=== PATIENT | female | born 1945 | race Caucasian/White ===

== ENCOUNTER → 2016-04-24 | Outpatient (CLI) | payer MEDICARE, OTHER ==
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
== END | disposition home or self-care (01) ==
LOC: RADMRIMAIN 20:37
PROVIDERS: ATTEND Psychiatry & Neurology Neurology
DX: M48.06 Spinal stenosis, lumbar region (principal); M99.73 Connective tissue and disc stenosis of intervertebral foramina of lumbar region; M43.16 Spondylolisthesis, lumbar region; M51.26 Other intervertebral disc displacement, lumbar region; M51.36 Other intervertebral disc degeneration, lumbar region
CPT/HCPCS: 72148

== ENCOUNTER → 2016-05-20 | Outpatient (CLI) | payer MEDICARE, OTHER ==
--- NOTE | 2016-05-20 11:52 | MM ---
Reason for exam: history of breast cancer, conservation therapy. Last mammogram was performed 1 year ago. History: Patient is postmenopausal, has history of breast cancer at age 58, and has history of other cancer at age 56. Family history of breast cancer in sister at age 56. Benign right mammotome panel of the right breast, June 13, 2008. Lumpectomy of the left breast, August 2004. Radiation therapy of the left breast, May 2004. Malignant stereotactic core biopsy of the left breast, April 04, 2004. Took estrogen for 12 years. Took progesterone for 12 years. Took tamoxifen for 4 years 6 months. Physical Findings: Nurse did not find any significant physical abnormalities on exam. MG 3D Diag Mammo W/Cad JASON Bilateral CC and MLO view(s) were taken. Prior study comparison: May 19, 2015, bilateral MG 3d diag mammo w/cad JASON. May 18, 2014, bilateral MG diagnostic mammo w CAD JASON. June 30, 2013, CAD bilateral diagnostic mammogram. June 29, 2012, CAD bilateral diagnostic mammogram. Previous mammotome biopsy in the right breast. Extensive post surgical deformity to the left breast. No significant new findings when compared with previous films. These results were verbally communicated with the patient and result sheet given to the patient on 05/20/16. ASSESSMENT: Benign, BI-RAD 2 RECOMMENDATION: Follow-up diagnostic mammogram of both breasts in 1 year.
== END ==
LOC: RADMAMWWP 10:52
PROVIDERS: ATTEND Internal Medicine Hematology & Oncology
DX: Z85.3 Personal history of malignant neoplasm of breast (principal)
CPT/HCPCS: G0204; G0279

== ENCOUNTER → 2016-06-10 | Outpatient (CLI) | payer MEDICARE, OTHER ==
[2016-06-10 14:30] LABS: Non-African American GFR(MDRD) >60 (>60 ml/min/1.73 sqM)
== END ==
LOC: LABWHC1 13:47
PROVIDERS: ATTEND Psychiatry & Neurology Neurology
DX: Z01.812 Encounter for preprocedural laboratory examination (principal); M48.04 Spinal stenosis, thoracic region
CPT/HCPCS: 36415; 82565

== ENCOUNTER → 2016-06-11 | Outpatient (CLI) | payer MEDICARE, OTHER ==
--- NOTE | 2016-06-11 16:13 | MR ---
EXAMINATION TYPE: MR thoracic spine wo/w con DATE OF EXAM: 06/11/2016 2:20 PM COMPARISON: NONE HISTORY: spinal stenosis TECHNIQUE: Multiplanar multiecho imaging on a 3.0 Elena magnet is performed through the thoracic spin e. CONTRAST: Standard multiplanar, multisequence MRI departmental protocol utilizing 10 mL intravenous MultiHance gadolinium contrast. FINDINGS: Spinal cord maintains normal signal throughout its visualized course. T10-T11: Right right posterior lateral thecal sac compression from facet hypertrophy is present. This may have cord contact. Cord deformity is not identified. No spinal canal stenosis is evident. T7-T8: There is mild left paracentral disc bulging with mild anterior thecal sac compression. No cord contact is evident. No spinal canal stenosis or neural foraminal stenosis is present. Disc desiccation is present diffusely. Vertebral body heights are preserved. No abnormal enhancement is evident. IMPRESSION: 1. Facet hypertrophy T10-T11 with right posterior lateral thecal sac compression. 2. Left paracentral disc bulging T7-T8 with mild thecal sac compression.
== END | disposition home or self-care (01) ==
LOC: RADMRIMAIN 13:17
PROVIDERS: ATTEND Psychiatry & Neurology Neurology
DX: M51.24 Other intervertebral disc displacement, thoracic region (principal); G95.29 Other cord compression; M48.04 Spinal stenosis, thoracic region
CPT/HCPCS: 72157; A9577

== ENCOUNTER → 2016-11-21 | Outpatient (CLI) | payer MEDICARE, OTHER ==
--- NOTE | 2016-11-21 09:19 | MM ---
Reason for exam: clinical finding. Last mammogram was performed 6 months ago. History: Patient is postmenopausal, has history of breast cancer at age 58, and has history of other cancer at age 56. Family history of breast cancer in sister at age 56. Benign right mammotome panel of the right breast, June 13, 2008. Lumpectomy of the left breast, August 2004. Radiation therapy of the left breast, May 2004. Malignant stereotactic core biopsy of the left breast, April 04, 2004. Took estrogen for 12 years. Took progesterone for 12 years. Took tamoxifen for 4 years 6 months. Indicated problem(s): lump or thickening in the left breast. Physical Findings: Nurse did not find any significant physical abnormalities on exam. MG 3D Diag Mammo W/Cad LT CC and MLO view(s) were taken of the left breast. Prior study comparison: May 20, 2016, bilateral MG 3d diag mammo w/cad JASON. May 19, 2015, bilateral MG 3d diag mammo w/cad JASON. The breast tissue is heterogeneously dense. This may lower the sensitivity of mammography. No suspicious calcifications are seen. Persistent distortion of left breast secondary to lumpectomy and radiations therapy. No new masses. No significant new findings when compared with previous films. These results were verbally communicated with the patient and result sheet given to the patient on 11/21/16. ASSESSMENT: Benign, BI-RAD 2 RECOMMENDATION: Follow-up diagnostic mammogram of both breasts in 6 months. Back on schedule for May 2017. Manage patient on a clinical basis.
== END | disposition home or self-care (01) ==
LOC: RADMAMWWP 08:19
PROVIDERS: ATTEND Internal Medicine Geriatric Medicine
DX: N63 Unspecified lump in breast (principal)
CPT/HCPCS: G0206; G0279

== ENCOUNTER → 2017-05-21 | Outpatient (CLI) | payer MEDICARE, OTHER ==
--- NOTE | 2017-05-21 11:11 | MM ---
Reason for exam: follow-up at short interval from prior study. Last mammogram was performed 6 months ago. History: Patient is postmenopausal, has history of breast cancer at age 58, and has history of other cancer at age 56. Family history of breast cancer in sister at age 56. Benign right mammotome panel of the right breast, June 13, 2008. Lumpectomy of the left breast, August 2004. Radiation therapy of the left breast, May 2004. Malignant stereotactic core biopsy of the left breast, April 04, 2004. Took estrogen for 12 years. Took progesterone for 12 years. Took tamoxifen for 4 years 6 months. Physical Findings: Nurse did not find any significant physical abnormalities on exam. MG 3D Diag Mammo W/Cad JASON Bilateral CC and MLO view(s) were taken. Prior study comparison: November 21, 2016, left breast MG 3d diag mammo w/cad LT. May 20, 2016, bilateral MG 3d diag mammo w/cad JASON. There are scattered fibroglandular densities. Finding: Architectural distortion in the left breast consistent with known lumpectomy. Previous mammotome biopsy in the right breast. There is no discrete abnormality. These results were verbally communicated with the patient and result sheet given to the patient on 05/21/17. ASSESSMENT: Benign, BI-RAD 2 RECOMMENDATION: Follow-up diagnostic mammogram of both breasts in 1 year.
== END | disposition home or self-care (01) ==
LOC: RADMAMWWP 10:08
PROVIDERS: ATTEND Internal Medicine Hematology & Oncology
DX: Z08 Encounter for follow-up examination after completed treatment for malignant neoplasm (principal); Z85.3 Personal history of malignant neoplasm of breast
CPT/HCPCS: 77066; G0279

== ENCOUNTER → 2018-05-22 | Outpatient (CLI) | payer MEDICARE, OTHER ==
--- NOTE | 2018-05-22 11:51 | MM ---
Reason for exam: additional evaluation requested from prior study. Last mammogram was performed 1 year ago. History: Patient is postmenopausal, has history of breast cancer at age 58, and has history of other cancer at age 56. Family history of breast cancer in sister at age 56. Benign right mammotome panel of the right breast, June 13, 2008. Lumpectomy of the left breast, August 2004. Radiation therapy of the left breast, May 2004. Malignant stereotactic core biopsy of the left breast, April 04, 2004. Took estrogen for 12 years. Took progesterone for 12 years. Took tamoxifen for 4 years 6 months. Physical Findings: Nurse did not find any significant physical abnormalities on exam. MG 3D Diag Mammo W/Cad JASON Bilateral CC and MLO view(s) were taken. Prior study comparison: May 21, 2017, bilateral MG 3d diag mammo w/cad JASON. November 21, 2016, left breast MG 3d diag mammo w/cad LT. The breast tissue is heterogeneously dense. This may lower the sensitivity of mammography. Previous mammotome biopsy in the right breast. Post lumpectomy changes left breast. These results were verbally communicated with the patient and result sheet given to the patient on 05/22/18. ASSESSMENT: Benign, BI-RAD 2 RECOMMENDATION: Follow-up diagnostic mammogram of both breasts in 1 year.
== END | disposition home or self-care (01) ==
LOC: RADMAMWWP 10:56
PROVIDERS: ATTEND Internal Medicine Hematology & Oncology
DX: Z08 Encounter for follow-up examination after completed treatment for malignant neoplasm (principal); Z85.3 Personal history of malignant neoplasm of breast
CPT/HCPCS: 77066; G0279; 77062

== ENCOUNTER → 2018-06-26 | Outpatient (CLI) | payer MEDICARE, OTHER | END | disposition home or self-care (01) | LOC: LABWHC1 15:46 | PROVIDERS: ATTEND Psychiatry & Neurology Neurology | DX: G45.9 Transient cerebral ischemic attack, unspecified (principal); M99.00 Segmental and somatic dysfunction of head region | CPT/HCPCS: 36415; 82565 ==

== ENCOUNTER → 2018-06-29 | Outpatient (CLI) | payer MEDICARE, OTHER ==
--- NOTE | 2018-06-29 11:13 | MR ---
EXAMINATION TYPE: MR brain wo con DATE OF EXAM: 06/29/2018 COMPARISON: MRI brain July 31, 2015. HISTORY: TIA, left sided weakness TECHNIQUE: Multiplanar, multisequence imaging of the brain and brainstem is performed without IV cont rast. FINDINGS: Diffusion weighted images demonstrate no evidence of a recent infarct or other diffusion abnormality. There is no worrisome extra-axial fluid collection. There is ventricular and sulcal prominence. Degre e of ventricular dilatation is out of proportion to degree of sulcal effacement and a normal pressure hydrocephalus is not excluded. Ventricular size is not significantly changed from prior MRI.. Fourth ventricle is noted nonprominent. There are scattered foci of T2 hyperintensity including confluent a ppearance periventricular region redemonstrated. Midline structures redemonstrate empty sella morphology. There are some fluid-filled prominence aroun d optic nerve sheaths bilaterally redemonstrated. Some distortion at level of globes is seen. The aircraft pneudraulic systems mechanic niocervical junction appears within normal limits. Normal vascular flow voids are present. Tortuous c ourse to distal right vertebral artery is redemonstrated. Mild mucosal thickening involving ethmoid s inuses bilaterally is redemonstrated otherwise paranasal sinuses are clear. Some patchy fluid signal inferior left mastoid air cells is redemonstrated. IMPRESSION: There is persistent mild age-related cerebral atrophy and moderate to severe white matter changes presumed on basis of product of chronic small vessel ischemic change and/or combination of t ransependymal flow of CSF as there is suspected underlying stable mild to moderate hydrocephalus. Pse udotumor cerebri is not excluded. Correlate clinically. No significant change from prior MRI.
--- NOTE | 2018-06-29 15:42 | MR ---
EXAMINATION TYPE: MR angiography head wo MR angiography neck wo/w con DATE OF EXAM: 06/29/2018 COMPARISON: NONE HISTORY: 72-year-old female TIA, left sided weakness Technique: High-resolution 3-D [id number]-[id number]-avtfpr of the ione of [place]. Rotational 3-D reconstructions generated on a dedicated independent workstation. Subsequently pre and postcontrast imaging of the c arotid vasculature of the neck utilizing administration of 6 mL intravenous Gadavist gadolinium contr ast. Additional 2-D and 3-D [id number] imaging of the neck was also performed. FINDINGS: MR ANGIOGRAPHY HEAD: Mild atherosclerotic narrowing at the origin of the A1 segment left anterior cerebral artery. There l inear low signal intensity involving the right greater than left bilateral ICAs along the clinoid to supraclinoid portions, possibly relating to flow related artifact. However, given patient's symptoms and the appearance on 3-D reconstructions, for example, series 204 image 2, CT angiography can exclud e the less likely possibility of underlying dissections. No aneurysmal changes seen. No intracranial arterial occlusion. MR ANGIOGRAPHY NECK: The vertebral arteries are codominant without any flow-limiting stenosis. The brachiocephalic artery is patent. There is moderate, just over 50% atherosclerotic narrowing involving the distal right common carotid artery and carotid bulb secondary to eccentric atherosclerotic change. The upper right ICA is tortuous but otherwise patent. The left common and internal carotid arteries are patent. The upper left ICA is tortuous. IMPRESSION: MRA HEAD: 1. No intracranial arterial occlusion or hemodynamically significant stenosis. 2. Linear low signal intensity within the right greater than left clinoid and supraclinoid ICAs proba ambar flow artifact. However, given the patient's symptoms, follow-up CT angiography is recommended to exclude the less likely possibility of intracranial carotid vessel dissections. 3. Mild atherosclerotic narrowing at the left A1 segment, REGGIE origin. MRA NECK: 1. Moderate, just over 50% atherosclerotic stenosis involving the distal right CCA and right carotid bulb. 2. No hemodynamically significant ICA stenosis on the left.
== END | disposition home or self-care (01) ==
LOC: RADMRIMAIN 06:44
PROVIDERS: ATTEND Psychiatry & Neurology Neurology
DX: I66.12 Occlusion and stenosis of left anterior cerebral artery (principal); I65.21 Occlusion and stenosis of right carotid artery; R90.89 Other abnormal findings on diagnostic imaging of central nervous system
CPT/HCPCS: 70544; 70549; 70551; A9585

== ENCOUNTER → 2019-03-30 | Outpatient (CLI) | payer MEDICARE, OTHER ==
[2019-03-30 12:28] LABS: African American GFR (CKD) >90 (>60 ml/min/1.73 sqM); Blood Urea Nitrogen 18 mg/dL (7-17); Non-African American GFR(CKD) >90 (>60 ml/min/1.73 sqM)
--- NOTE | 2019-03-30 12:56 | CT ---
EXAMINATION TYPE: CT angio chest DATE OF EXAM: 03/30/2019 COMPARISON: NONE HISTORY: SOB and chest pain [id number] CT DLP: 134.4 mGycm. Automated Exposure Control for Dose Reduction was Utilized. CONTRAST: CTA scan of the thorax is performed with IV Contrast, patient injected with 60 mL of Isovue 370, pulm onary embolism protocol. MIP Images are created on CT scanner and reviewed. FINDINGS: LUNGS: There is mild to moderate linear scarring anteriorly midlung level with the additional subpleu ral reticulation and peripheral fibrotic changes involving the anterior left upper lobe and lingula. No suspicious focal consolidation or infiltrate. Mild linear scarring medially left lung base. No ple ural effusion or pneumothorax. No concerning nodules or masses. MEDIASTINUM: There is slightly suboptimal bolus but there is no CT evidence for pulmonary embolism. There are no greater than 1 cm hilar or mediastinal lymph nodes. No pericardial effusion is seen. C ardiomegaly is present. There is coronary artery calcification seen which is noted marked of underlyi ng coronary artery disease. OTHER: There is moderate to large size hiatal hernia causing mass effect on the posterior wall of the left ventricle with adjacent surgical clips. Cholecystectomy clips are seen. There are surgical velez ge to the medial aspect left breast with thin-walled 2.4 cm fluid collection presumed postexcisional seroma which should be correlated clinically. The spine is straightened with multilevel spurring and disc space narrowing IMPRESSION: 1. Suboptimal study without CT evidence for acute pulmonary embolism. 2. [id number] parenchymal fibrotic changes and cardiomegaly without acute pulmonary process.
== END | disposition home or self-care (01) ==
LOC: RADCTMAIN 11:46
PROVIDERS: ATTEND Internal Medicine Geriatric Medicine
DX: J84.10 Pulmonary fibrosis, unspecified (principal); I51.7 Cardiomegaly
CPT/HCPCS: 36415; 71275; 82565; 84520

== ENCOUNTER → 2019-11-15 | Outpatient (CLI) | payer MEDICARE, OTHER ==
--- NOTE | 2019-11-15 22:05 | MR ---
EXAMINATION TYPE: MR lumbar spine wo/w con DATE OF EXAM: 11/15/2019 COMPARISON: MRI lumbar spine 04/24/2016 HISTORY: Spinal stenosis, weakness, numbness, disc displacement TECHNIQUE: Multiplanar, multisequence images of the lumbar spine were acquired utilizing [address] gadolinium contrast. L1-L2: Marked circumferential disc bulge. Mild canal stenosis is present. Foramina are patent bilate rally. L2-L3: Tiny grade 1 retrolisthesis of L2 on L3, and interbody spacer device. Moderate to marked circu mferential disc bulge. Facet arthropathy. Mild canal stenosis is present. Mild right and severe left neural foramina narrowing. L3-L4: Marked circumferential disc bulge and indention of the posterior thecal sac by facet arthropat hy. Moderate canal stenosis is present. Moderate right and severe left neural foramina narrowing. L4-L5: Marked circumferential disc bulge and dimension of the posterior thecal sac by facet arthropat hy. Moderate to severe canal stenosis is present. Severe bilateral neural foramina narrowing. L5-S1: Marked circumferential disc bulge, ligamentum flavum hypertrophy, and facet arthropathy. Mild stenosis is present. Moderate right and severe left neural foramina narrowing. Conus medullaris has a normal appearance and terminates at the level of L1. Cauda equina nerve roots are normal in course and caliber. No focal abnormal postcontrast enhancement. IMPRESSION: Marked multilevel degenerative disc disease and facet arthropathy, contributing to varying degrees of canal stenosis and facet arthropathy. There is moderate to severe canal stenosis at L4-L5, and sever e multilevel neural foramina narrowing as above.
== END | disposition home or self-care (01) ==
LOC: RADMRIMAIN 09:29
PROVIDERS: ATTEND Psychiatry & Neurology Neurology
DX: M48.061 Spinal stenosis, lumbar region without neurogenic claudication (principal); M51.26 Other intervertebral disc displacement, lumbar region; M51.36 Other intervertebral disc degeneration, lumbar region; M47.816 Spondylosis without myelopathy or radiculopathy, lumbar region
CPT/HCPCS: 72158; A9585

== ENCOUNTER → 2020-06-19 | Outpatient (CLI) | payer MEDICARE, OTHER ==
--- NOTE | 2020-06-19 14:01 | MM ---
Reason for exam: additional evaluation requested from prior study. Last mammogram was performed 1 year and 1 month ago. History: Patient is postmenopausal, has history of breast cancer at age 58, and has history of other cancer at age 56. Family history of breast cancer in sister at age 56. Benign right mammotome panel of the right breast, June 13, 2008. Lumpectomy of the left breast, August 2004. Radiation therapy of the left breast, May 2004. Malignant stereotactic core biopsy of the left breast, April 04, 2004. Took estrogen for 12 years. Took progesterone for 12 years beginning at age 42. Took tamoxifen for 4 years 6 months. Physical Findings: Nurse Summary: 0.5cm nodule in the right breast at 7 o'clock (nurse payton). MG 3D Diag Mammo W/Cad JASON Bilateral CC and MLO view(s) were taken. Prior study comparison: May 24, 2019, bilateral MG 3d diag mammo w/cad JASON. May 22, 2018, bilateral MG 3d diag mammo w/cad JASON. The breast tissue is heterogeneously dense. This may lower the sensitivity of mammography. Stable benign calcifications. Stable post operative changes left breast. These results were verbally communicated with the patient and result sheet given to the patient on 06/19/20. ASSESSMENT: Incomplete: need additional imaging evaluation, BI-RAD 0 RECOMMENDATION: Ultrasound of the right breast. Manage patient on a clinical basis.
--- NOTE | 2020-06-19 14:02 | USB ---
Reason for exam: additional evaluation requested from abnormal screening. History: Patient is postmenopausal, has history of breast cancer at age 58, and has history of other cancer at age 56. Family history of breast cancer in sister at age 56. Benign right mammotome panel of the right breast, June 13, 2008. Lumpectomy of the left breast, August 2004. Radiation therapy of the left breast, May 2004. Malignant stereotactic core biopsy of the left breast, April 04, 2004. Took estrogen for 12 years. Took progesterone for 12 years beginning at age 42. Took tamoxifen for 4 years 6 months. US Breast Limited RT Technologist: Natalia Lloyd Right limited breast ultrasound including focal area of concern, retroareolar and axilla demonstrates no cystic or solid lesion seen. These results were verbally communicated with the patient and result sheet given to the patient on 06/19/20. ASSESSMENT: Benign, BI-RAD 2 RECOMMENDATION: Routine screening mammogram of both breasts in 1 year. Manage patient on a clinical basis.
== END | disposition home or self-care (01) ==
LOC: RADMAMWWP 12:55
PROVIDERS: ATTEND Internal Medicine Hematology & Oncology
DX: Z08 Encounter for follow-up examination after completed treatment for malignant neoplasm (principal); Z85.3 Personal history of malignant neoplasm of breast
CPT/HCPCS: 77066; 76642; G0279; 77062

== ENCOUNTER 2020-11-30 15:21 | Inpatient (IN) | payer MEDICARE, OTHER ==
[2020-11-30] MEDS ORDERED: SODIUM CHLORIDE 0.9% 500 ML 500 ML IV STA (17:30)
--- NOTE | 2020-11-30 17:36 | ED ---
General Adult HPI - General Chief complaint: Recheck/Abnormal Lab/Rx Stated complaint: Heart Concerns-sent by pcp Source: patient, family, RN notes reviewed, old records reviewed Mode of arrival: ambulatory Limitations: no limitations - History of Present Illness Initial comments: 74-year-old well-appearing white female presents to the emergency room with her . She states that she was sent to the emergency room by her primary care Dr Cohen history of visit today with concerns for EKG changes. Patient was in the office because she had a syncopal episode on Friday around midnight. She states that she was having a snack in the kitchen when she stood up she had pa ssed out. She did hit the left side of her head and had some bruising. She is not on any blood thinners. She also sustained some bruising to the right ribs which she says she was at the doctor's office. He states that it does hurt to take a deep breath. She denies any other injuries. She denies any chest pain or shortness of breath. -: days(s) (6) Radiation: non-radiation Severity scale (1-10): 0 Associated Symptoms: denies other symptoms - Related Data Allergies Allergy/AdvReac Type Severity Reaction Status Date / Time celecoxib [From Celebrex] AdvReac Unknown Verified 11/30/20 17:11 fentanyl AdvReac Unknown Verified 11/30/20 17:11 Sulfa (Sulfonamide AdvReac Unknown Verified 11/30/20 17:11 Antibiotics) Review of Systems ROS Statement: Those systems with pertinent positive or pertinent negative responses have been documented in the HPI. ROS Other: All systems not noted in ROS Statement are negative. Past Medical History Past Medical History: Hypertension History of Any Multi-Drug Resistant Organisms: None Reported Past Surgical History: Section, Orthopedic Surgery Additional Past Surgical History / Comment(s): thoracic and cervical spine surgery, lumpectomy Past Psychological History: No Psychological Hx Reported Smoking Status: Former smoker Past Alcohol Use History: Occasional Past Drug Use History: None Reported General Exam Limitations: no limitations General appearance: alert, in no apparent distress Head exam: Present: normocephalic, other (Ecchymosis to the left alevism) Eye exam: Present: normal appearance, PERRL, EOMI. Absent: scleral icterus, conjunctival injection, periorbital swelling ENT exam: Present: normal exam, normal oropharynx, mucous membranes moist Neck exam: Present: normal inspection, full ROM. Absent: tenderness, meningism us, lymphadenopathy, thyromegaly Respiratory exam: Present: normal lung sounds bilaterally. Absent: respiratory distress, wheezes, rales, rhonchi, stridor, accessory muscle use, decreased breath sounds, prolonged expiratory Cardiovascular Exam: Present: regular rate, normal rhythm, normal heart sounds. Absent: systolic murmur, diastolic murmur, rubs, gallop, clicks GI/Abdominal exam: Present: soft, normal bowel sounds. Absent: distended, tenderness, guarding, rebound, rigid Extremities exam: Present: normal inspection, full ROM, normal capillary refill. Absent: tenderness, pedal edema, joint swelling, calf tenderness Back exam: Present: normal inspection Expanded Back exam: Present: saddle anesthesia Back exam: Negative Straight Leg Raising: Left, Right Neurological exam: Present: alert, oriented X3, CN II-XII intact Expanded Patient oriented to: Present: person, place, time Speech: Present: fluid speech Cranial nerves: EOM's Intact: Normal, Gag Reflex: Normal, Tongue Deviation: Normal Motor strength exam: RUE: 5, LUE: 5, RLE: 5, LLE: 5 Eye Response: (4) open spontaneously Motor Response: (6) obeys commands Verbal Response: (5) oriented [place] Total: 15 Psychiatric exam: Present: normal affect, normal mood Skin exam: Present: warm, dry, intact, normal color. Absent: rash Course Vital Signs 11/30/20 11/30/20 11/30/20 17:06 18:10 19:00 Temperature 98.1 F Pulse Rate 83 Respiratory 18 18 Rate Blood Pressure 190/78 176/75 O2 Sat by Pulse 98 Oximetry EKG Findings - EKG Results: EKG: sinus rhythm (Ventricular rate 79, IN interval 0.172, QRS 0.94, QTC 0.493) Medical Decision Making - Medical Decision Making CBC and electrolytes unremarkable. UA is negative. Chest x-ray negative for any acute cardiopulmonary process. There is a large hiatal hernia noted. Troponin is negative at 0.012, EKG shows ST depression in leads 4,5 and 6. Patient did have a syncopal episode Friday. She didn't hit her head and has some bruising to the left alevism and bruising to her right ribs. She will be admitted to Dr. Cohen with cardiology on consult. Patient is pain-free without any shortness of breath. We will do serial troponins and an echo. - Lab Data Result diagrams: 11/30/20 18:00 11/30/20 18:00 Lab Results 11/30/20 11/30/20 11/30/20 Range/Units 18:00 18:00 18:00 WBC 6.9 (3.8-10.6) k/uL RBC 3.87 (3.80-5.40) m/uL Hgb 12.6 (11.4-16.0) gm/dL Hct 36.6 (34.0-46.0) % MCV 94.7 (80.0-100.0) fL MCH 32.6 (25.0-35.0) pg MCHC 34.4 (31.0-37.0) g/dL RDW 14.9 (11.5-15.5) % Plt Count 220 (150-450) k/uL MPV 8.9 Neutrophils % 63 % Lymphocytes % 20 % Monocytes % 8 % Eosinophils % 3 % Basophils % 1 % Neutrophils # 4.4 (1.3-7.7) k/uL Lymphocytes # 1.4 (1.0-4.8) k/uL Monocytes # 0.6 (0-1.0) k/uL Eosinophils # 0.2 (0-0.7) k/uL Basophils # 0.1 (0-0.2) k/uL Hypochromasia Slight PT 10.2 (9.0-12.0) sec INR 0.9 (<1.2) APTT 22.8 (22.0-30.0) sec Sodium (137-145) mmol/L Potassium (3.5-5.1) mmol/L Chloride (98-107) mmol/L Carbon Dioxide (22-30) mmol/L Anion Gap mmol/L BUN (7-17) mg/dL Creatinine (0.52-1.04) mg/dL Est GFR (CKD-EPI)AfAm (>60 ml/min/1.73 sqM) Est GFR (CKD-EPI)NonAf (>60 ml/min/1.73 sqM) Glucose (74-99) mg/dL Calcium (8.4-10.2) mg/dL Magnesium (1.6-2.3) mg/dL Total Bilirubin (0.2-1.3) mg/dL AST (14-36) U/L ALT (4-34) U/L Alkaline Phosphatase (38-126) U/L Troponin I (0.000-0.034) ng/mL Total Protein (6.3-8.2) g/dL Albumin (3.5-5.0) g/dL Urine Color Light Yellow Urine Appearance Clear (Clear) Urine pH 7.0 (5.0-8.0) Ur Specific Garrison 1.008 (1.001-1.035) Urine Protein Negative (Negative) Urine Glucose (UA) Negative (Negative) Urine Ketones Negative (Negative) Urine Blood Negative (Negative) Urine Nitrite Negative (Negative) Urine Bilirubin Negative (Negative) Urine Urobilinogen <2.0 (<2.0) mg/dL Ur Leukocyte Esterase Negative (Negative) 11/30/20 11/30/20 Range/Units 18:00 18:00 WBC (3.8-10.6) k/uL RBC (3.80-5.40) m/uL Hgb (11.4-16.0) gm/dL Hct (34.0-46.0) % MCV (80.0-100.0) fL MCH (25.0-35.0) pg MCHC (31.0-37.0) g/dL RDW (11.5-15.5) % Plt Count (150-450) k/uL MPV Neutrophils % % Lymphocytes % % Monocytes % % Eosinophils % % Basophils % % Neutrophils # (1.3-7.7) k/uL Lymphocytes # (1.0-4.8) k/uL Monocytes # (0-1.0) k/uL Eosinophils # (0-0.7) k/uL Basophils # (0-0.2) k/uL Hypochromasia PT (9.0-12.0) sec INR (<1.2) APTT (22.0-30.0) sec Sodium 131 L (137-145) mmol/L Potassium 4.6 (3.5-5.1) mmol/L Chloride 98 (98-107) mmol/L Carbon Dioxide 25 (22-30) mmol/L Anion Gap 8 mmol/L BUN 14 (7-17) mg/dL Creatinine 0.63 (0.52-1.04) mg/dL Est GFR (CKD-EPI)AfAm >90 (>60 ml/min/1.73 sqM) Est GFR (CKD-EPI)NonAf 89 (>60 ml/min/1.73 sqM) Glucose 104 H (74-99) mg/dL Calcium 9.7 (8.4-10.2) mg/dL Magnesium 1.7 (1.6-2.3) mg/dL Total Bilirubin <0.1 L (0.2-1.3) mg/dL AST 44 H (14-36) U/L ALT 20 (4-34) U/L Alkaline Phosphatase 84 (38-126) U/L Troponin I <0.012 (0.000-0.034) ng/mL Total Protein 7.4 (6.3-8.2) g/dL Albumin 4.6 (3.5-5.0) g/dL Urine Color Urine Appearance (Clear) Urine pH (5.0-8.0) Ur Specific Garrison (1.001-1.035) Urine Protein (Negative) Urine Glucose (UA) (Negative) Urine Ketones (Negative) Urine Blood (Negative) Urine Nitrite (Negative) Urine Bilirubin (Negative) Urine Urobilinogen (<2.0) mg/dL Ur Leukocyte Esterase (Negative) Disposition Clinical Impression: Acute electrocardiogram changes, Syncope Disposition: ADMITTED IP TO THIS [facility] Referrals: Don Cohne MD [Primary Care Provider] - 1-2 days Decision Date: 11/30/20 Decision Time: 19:17
[2020-11-30 18:14] LABS: Appearance,Urine Clear (Clear); Bilirubin,Urine Negative (Negative); Blood,Urine Negative (Negative); Color,Urine Light Yellow; Glucose,Urine (UA) Negative (Negative); Ketones,Urine Negative (Negative); Leukocyte Esterase,Urine Negative (Negative); Nitrite,Urine Negative (Negative); Protein,Urine Negative (Negative); Specific Gravity,Urine 1.008 (1.001-1.035); Urobilinogen,Urine <2.0 mg/dL (<2.0)
[2020-11-30 18:16] LABS: ALT 20 U/L (4-34); AST 44 U/L (14-36); African American GFR (CKD) >90 (>60 ml/min/1.73 sqM); Albumin 4.6 g/dL (3.5-5.0); Alkaline Phosphatase 84 U/L (38-126); Anion Gap 8 mmol/L; Blood Urea Nitrogen 14 mg/dL (7-17); Calcium 9.7 mg/dL (8.4-10.2); Carbon Dioxide 25 mmol/L (22-30); Chloride 98 mmol/L (98-107); Glucose 104 mg/dL (74-99); Magnesium 1.7 mg/dL (1.6-2.3); Non-African American GFR(CKD) 89 (>60 ml/min/1.73 sqM); Potassium 4.6 mmol/L (3.5-5.1); Sodium 131 mmol/L (137-145); Total Bilirubin <0.1 mg/dL (0.2-1.3); Total Protein 7.4 g/dL (6.3-8.2)
[2020-11-30 18:25] LABS: INR 0.9 (<1.2); Partial Thromboplastin Time 22.8 sec (22.0-30.0); Prothrombin Time 10.2 sec (9.0-12.0)
--- NOTE | 2020-11-30 18:28 | XR ---
EXAMINATION: XR chest 2V DATE AND TIME: 11/30/2020 6:03 PM CLINICAL INDICATION: PHH; syncope TECHNIQUE: Departmental protocol COMPARISON: CT 03/30/2019 FINDINGS: The lungs are clear. The pleural spaces are negative. Mild cardiomegaly is redemonstrated. Also redemonstrated is the large hiatal hernia. The skeletal structures and soft tissues are negative for acute findings. IMPRESSION: No acute process
[2020-11-30 18:41] LABS: Basophils # (A) 0.1 k/uL (0-0.2); Basophils % (A) 1 %; Eosinophils # (A) 0.2 k/uL (0-0.7); Eosinophils % (A) 3 %; HCT 36.6 % (34.0-46.0); HGB 12.6 gm/dL (11.4-16.0); Hypochromasia Slight; Lymphocytes # (A) 1.4 k/uL (1.0-4.8); Lymphocytes % (A) 20 %; MCH 32.6 pg (25.0-35.0); MCHC 34.4 g/dL (31.0-37.0); MCV 94.7 fL (80.0-100.0); Mean Platelet Volume 8.9; Monocytes # (A) 0.6 k/uL (0-1.0); Monocytes % (A) 8 %; Neutrophils # (A) 4.4 k/uL (1.3-7.7); Neutrophils % (A) 63 %; Platelet Count 220 k/uL (150-450); RBC 3.87 m/uL (3.80-5.40); RDW 14.9 % (11.5-15.5); WBC 6.9 k/uL (3.8-10.6)
[2020-11-30] MEDS ORDERED: NALOXONE 0.4 MG/ML 1 ML VIAL IV PRN (19:14)
[2020-11-30] MEDS: ACETAMINOPHEN TAB 325 MG TAB PO PRN (21:01)
[2020-12-01] MEDS ORDERED: ALBUTEROL NEBULIZED 2.5 MG/3 ML INHALATION PRN (02:21)
[2020-12-01] MEDS: LABETALOL 200 MG TAB PO SCH ×3 (03:05→20:20)
[2020-12-01] MEDS: cloNIDine HCL 0.1 MG TAB PO SCH ×2 (03:05→20:20)
[2020-12-01] MEDS: rOPINIRole HCL 4 MG TABLET PO SCH ×3 (03:05→20:20)
[2020-12-01] MEDS: ACETAMINOPHEN TAB 325 MG TAB PO PRN ×3 (03:09→17:15)
[2020-12-01] MEDS ORDERED: REGADENOSON 0.4 MG/5 ML SYRINGE IV PRN (10:29)
[2020-12-01] MEDS ORDERED: AMINOPHYLLINE 500 MG/20 ML VIAL IV PRN (10:29)
[2020-12-01] MEDS ORDERED: CAFFEINE CITRATE 60 MG/3 ML VIAL IV PRN (10:29)
--- NOTE | 2020-12-01 10:46 | P.CRDCN ---
History of Present Illness Consult date: 12/01/20 Chief complaint: Syncopal episode History of present illness: This is a very pleasant 75-year-old female patient with a past medical history significant for hypertension was sent to the emergency department for further cardiac evaluation. She was in her usual state of health until a few days ago when she was at home and she went to her kitchen to eat some crackers and when she stood up and suddenly she lost her consciousness. She clearly did have an episode of loss of consciousness. She does not recall what happened but she found herself on the floor and as a matter of fact she did have some injury around her left eye. Beside that she does not recall having any warm feeling in the face nor flush feeling nor symptoms of dizziness or lightheadedness. She reports no symptoms of chest pain or chest discomfort but does have shortness of breath with exertion for the last several months. Her risk factors include hypertension. She does not smoke. No significant family history of CAD. An EKG was performed and showed sinus rhythm with keep T-wave inversion concerning for severe underlying coronary artery disease. Troponin came in to be unremarkable. Currently she is on labetalol but the pressure continues to be not well-controlled and I am going to restart the patient on losartan at 25 mg by mouth daily and titrate the dose if we need to or add diuretics to current medical regimen. An echocardiogram is in process to be done. She does have a systolic murmur on examination Past Medical History Past Medical History: Cancer, Hypertension Additional Past Medical History / Comment(s): RLS, melanoma face History of Any Multi-Drug Resistant Organisms: None Reported Past Surgical History: Section, Hernia Repair, Orthopedic Surgery Additional Past Surgical History / Comment(s): thoracic and cervical spine surgery, lumpectomy Past Anesthesia/Blood Transfusion Reactions: Postoperative Nausea & Vomiting (PONV) Past Psychological History: No Psychological Hx Reported Smoking Status: Former smoker Past Alcohol Use History: Occasional Past Drug Use History: None Reported - Past Family History Mother Family Medical History: Asthma, Coronary Artery Disease (CAD), Hypertension Father Additional Family Medical History / Comment(s): at age 49 Medications and Allergies Home Medications Medication Instructions Recorded Confirmed Type Albuterol Sulfate [Proair Hfa] 2 puff INHALATION RT-Q4H PRN 11/30/20 11/30/20 History Alendronate Sodium [Fosamax] 70 mg PO MO 11/30/20 11/30/20 History Aspirin EC [Ecotrin Low Dose] 81 mg PO HS 11/30/20 11/30/20 History Baclofen [Lioresal] 20 mg PO BID 11/30/20 11/30/20 History Hydroxychloroquine Sulfate 200 mg PO CHOWDHURY 11/30/20 11/30/20 History [Plaquenil] Labetalol HCl 200 mg PO BID 11/30/20 11/30/20 History Losartan Potassium 100 mg PO Q48H 11/30/20 11/30/20 History Multivitamins, Thera [Multivitamin 1 tab PO DAILY 11/30/20 11/30/20 History (formulary)] Omeprazole [PriLOSEC] 20 mg PO AC-BID 11/30/20 11/30/20 History cloNIDine HCL [Catapres] 0.1 mg PO HS 11/30/20 11/30/20 History cycloSPORINE 0.05% OPHTH SOLN 1 drop BOTH EYES BID 11/30/20 11/30/20 History [Restasis] rOPINIRole HCL [Requip] 4 mg PO HS 11/30/20 11/30/20 History tiZANidine HCL [Zanaflex] 8 mg PO HS 11/30/20 11/30/20 History Allergies Allergy/AdvReac Type Severity Reaction Status Date / Time celecoxib [From Celebrex] AdvReac Unknown Verified 11/30/20 21:37 fentanyl AdvReac Unknown Verified 11/30/20 21:37 Sulfa (Sulfonamide AdvReac Unknown Verified 11/30/20 21:37 Antibiotics) Physical Exam Vitals: Vital Signs Temp Pulse Pulse Resp BP BP Pulse Ox 12/01/20 07:40 97.8 F 82 14 146/68 94 L 12/01/20 04:00 97.3 F L 82 16 168/82 96 12/01/20 02:00 18 12/01/20 01:18 97.7 F 81 16 198/83 95 11/30/20 19:00 176/75 11/30/20 18:10 18 11/30/20 17:06 98.1 F 83 18 190/78 98 Intake and Output 11/30/20 12/01/20 12/01/20 22:59 06:59 14:59 Other: Voiding Method Toilet # Voids 1 Weight 58.06 kg 58.5 kg - Constitutional General appearance: no acute distress - Respiratory Respiratory: bilateral: CTA - Cardiovascular Rhythm: regular Heart sounds: normal: S1, S2 Abnormal Heart Sounds: systolic murmur Results 11/30/20 18:00 11/30/20 18:00 Cardiac Enzymes 11/30/20 11/30/20 11/30/20 Range/Units 18:00 18:00 21:58 AST 44 H (14-36) U/L Troponin I <0.012 <0.012 (0.000-0.034) ng/mL Coagulation 11/30/20 Range/Units 18:00 PT 10.2 (9.0-12.0) sec APTT 22.8 (22.0-30.0) sec CBC 11/30/20 Range/Units 18:00 WBC 6.9 (3.8-10.6) k/uL RBC 3.87 (3.80-5.40) m/uL Hgb 12.6 (11.4-16.0) gm/dL Hct 36.6 (34.0-46.0) % Plt Count 220 (150-450) k/uL Comprehensive Metabolic Panel 11/30/20 Range/Units 18:00 Sodium 131 L (137-145) mmol/L Potassium 4.6 (3.5-5.1) mmol/L Chloride 98 (98-107) mmol/L Carbon Dioxide 25 (22-30) mmol/L BUN 14 (7-17) mg/dL Creatinine 0.63 (0.52-1.04) mg/dL Glucose 104 H (74-99) mg/dL Calcium 9.7 (8.4-10.2) mg/dL AST 44 H (14-36) U/L ALT 20 (4-34) U/L Alkaline Phosphatase 84 (38-126) U/L Total Protein 7.4 (6.3-8.2) g/dL Albumin 4.6 (3.5-5.0) g/dL Current Medications Generic Name Dose Route Start Last Admin Trade Name Freq PRN Reason Stop Dose Admin Acetaminophen 650 mg 11/30/20 19:14 12/01/20 09:56 Acetaminophen Tab 325 Mg Tab PO 650 mg Q6HR PRN Administration Mild Pain or Fever > 100.5 Albuterol Sulfate 2.5 mg 09/03/21 02:21 Albuterol Nebulized 2.5 Mg/3 Ml INHALATION RT-Q4H PRN Shortness Of Breath Aminophylline 100 mg 12/01/20 10:29 Aminophylline 500 Mg/20 Ml Vial IV 12/01/20 14:31 ONCE PRN Patient Response Aspirin 81 mg 12/01/20 21:00 Aspirin 81 Mg PO HS GODFREY Baclofen 20 mg 12/01/20 09:00 Baclofen 10 Mg Tab PO BID GODFREY Caffeine Citrate 60 mg 12/01/20 10:29 Caffeine Citrate 60 Mg/3 Ml Vial IV 12/01/20 14:31 ONCE PRN Patient Response Clonidine 0.1 mg 12/01/20 02:30 12/01/20 03:05 Clonidine Hcl 0.1 Mg Tab PO 0.1 mg HS GODFREY Administration Cyclosporine 1 drops 12/01/20 09:00 Cyclosporine 0.05% Ophth 0.4 Ml Droperette BOTH EYES BID GODFREY Hydroxychloroquine Sulfate 200 mg 12/03/20 09:00 Hydroxychloroquine Sulfate 200 Mg Tab PO CHOWDHURY GODFREY Labetalol HCl 200 mg 12/01/20 02:21 12/01/20 03:05 Labetalol 200 Mg Tab PO 200 mg BID GODFREY Administration Multivitamins 1 each 12/01/20 09:00 Multivitamins, Thera 1 Each Tab PO DAILY GODFREY Naloxone HCl 0.2 mg 11/30/20 19:14 Naloxone 0.4 Mg/Ml 1 Ml Vial IV Q2M PRN Opioid Reversal Pantoprazole Sodium 40 mg 12/01/20 07:30 Pantoprazole 40 Mg Tablet PO AC-BID GODFREY Regadenoson 0.4 mg 12/01/20 10:29 Regadenoson 0.4 Mg/5 Ml Syringe IV 12/01/20 14:31 ONCE PRN Per Protocol Ropinirole HCl 4 mg 12/01/20 02:35 12/01/20 03:05 Ropinirole Hcl 4 Mg Tablet PO 4 mg HS GODFREY Administration Tizanidine HCl 8 mg 12/01/20 21:00 Tizanidine 4 Mg Tab PO HS GODFREY Intake and Output 11/30/20 12/01/20 12/01/20 22:59 06:59 14:59 Other: Voiding Method Toilet # Voids 1 Weight 58.06 kg 58.5 kg 11/30/20 18:00 11/30/20 18:00 Assessment and Plan Assessment: Assessment #1 an episode of syncope #2 abnormal EKG concerning for severe CAD #3 systolic murmur on examination #4 hypertension Plan #1 acute coronary syndrome was ruled out #2 an echo is in process to be done #3 rule out cardiac arrhythmia #4 perform a stress test #5 follow-up with the patient
--- NOTE | 2020-12-01 12:30 | P.HPIM ---
History of Present Illness H&P Date: 12/01/20 HISTORY OF PRESENT ILLNESS This is a 75-year-old female patient of Dr. Cohen with past medical history of hypertension, breast cancer, spinal stenosis, restless leg syndrome. Patient states that on Friday she had passed out fell and hit her head. She denied having any chest pain, lightheadedness or dizziness or palpitations at that time. Patient was in the office with Dr. Cohen yesterday and EKG was found to be abnormal with T-wave inversions and 1, aVL, V3 through 6 which was new when compared to EKG from May. Patient denies having any episodes of chest pain over the past months between. Her last echocardiogram in September revealed EF of 55%, trace aortic regurgitation, trace mitral regurgitation, no aortic stenosis. Patient was sent into [facility] emergency center for evaluation. Patient was found to be afebrile, heart rate in the 80s, blood pressure initially 190/78, pulse ox 90% on room air. CBC was unremarkable. Sodium 131 otherwise electrolytes and renal function were normal. Blood sugar 104. D-dimer 1.16. Troponin negative on 2 draws. ProBNP 3470. Urinalysis negative. Chest x-ray showed no acute process. Changes concerning for coronary artery disease and patient was placed on the cardiac stepdown unit, consult c onsult with cardiology, echocardiogram, Lexiscan stress test was ordered. CTA of the chest will be ordered to rule out pulmonary embolism. REVIEW OF SYSTEMS Constitutional: No fever, no chills, no night sweats. No weight change. No weakness, fatigue or lethargy. No daytime sleepiness. EENT: No headache. No blurred vision or double vision, no loss of vision. No loss of Hearing, no ringing in the ears, no dizziness. No nasal drainage or congestion. No epistaxis. No sore throat. Lungs: No shortness of breath, cough, no sputum production. No wheezing. Cardiovascular: No chest pain, no lower extremity edema. No palpitations. No paroxysmal nocturnal dyspnea. No orthopnea. No lightheadedness or dizziness. Reported syncopal episode that occurred on Friday. Abdominal: No abdominal pain. No nausea, vomiting. No diarrhea. No constipation. No bloody or tarry stools.. No loss of appetite. Genitourinary: No dysuria, increased frequency, urgency. No urinary retention. Musculoskeletal: No myalgias. No muscle weakness, no gait dysfunction, no frequent falls. No back pain. No neck pain. Integumentary: No wounds, no lesions. No rash or pruritus. No unusual bruising. No change in hair or nails. Ecchymosis left face. Neurologic: No aphasia. No facial droop. No change in mentation. No head injury. No headache. No paralysis. No paresthesia. Psychiatric: No depression. No anxiety. No mood swings. Endocrine: No abnormal blood sugars. No weight change. SOCIAL HISTORY Patient was a smoker and quit when she was 33. She drinks alcohol occasionally. She does not have oxygen, CPAP, nebulizer. She lives at home with her .. FAMILY HISTORY Mother in her 80s with history of coronary artery disease. Father at age 49 from myasthenia gravis. Siblings have no major medical problems. Patient has one daughter that it passed at age 37 from bilateral carotid stenosis. PHYSICAL EXAMINATION Gen: This is a 75-year-old female. Patient is resting in bed and appears to be comfortable and in no acute distress. HEENT: Head is atraumatic, normocephalic. Pupils equal, round. Sclerae is anicteric. Ecchymosis to the left orbital and cheek areas. NECK: Supple. No JVD. No lymphadenopathy. No thyromegaly. LUNGS: Clear to auscultation. No wheezes or rhonchi. No intercostal retractions. HEART: Regular rate and rhythm. Systolic murmur. ABDOMEN: Soft. Bowel sounds are present. No masses. No tenderness. EXTREMITIES: No pedal edema. No calf tenderness. Dorsalis pedis +2 bilaterally. NEUROLOGICAL: Patient is awake, alert and oriented x3. Cranial nerves 2 through 12 are grossly intact. ASSESSMENT AND PLAN 1. Syncopal episode of unclear etiology. Continue cardiac monitoring to rule out arrhythmia, cardiology consult appreciated, stress test has been ordered. 2. Abnormal EKG concerning for coronary artery disease. Stress test ordered by cardiology. 3. Elevated d-dimer. CTA of the chest ordered to rule out pulmonary embolism. 4. Hypertension. Continue labetalol 200 mg twice daily, losartan 25 mg daily, Catapres 0.1 mg at bedtime. 5. History of breast cancer, stable. 6. History of spinal stenosis and chronic back pain. Continue Zanaflex 8 mg at bedtime, baclofen 20 mg twice daily. 7. Restless leg syndrome. Continue Requip 4 mg at bedtime. 8. Gastroesophageal reflux disease and GI prophylaxis. Continue Protonix 40 mg twice daily. 9. DVT prophylaxis. Heparin subcu. Patient will be admitted to the hospital for a minimum of 2 night stay. DISCHARGE PLAN Home. Impression and plan of care have been directed as dictated by the signing physician. Alta Lane nurse practitioner acting as scribe for signing physician. Past Medical History Past Medical History: Cancer, Hypertension Additional Past Medical History / Comment(s): RLS, melanoma face History of Any Multi-Drug Resistant Organisms: None Reported Past Surgical History: Section, Hernia Repair, Orthopedic Surgery Additional Past Surgical History / Comment(s): thoracic and cervical spine surgery, lumpectomy Past Anesthesia/Blood Transfusion Reactions: Postoperative Nausea & Vomiting (PONV) Past Psychological History: No Psychological Hx Reported Smoking Status: Former smoker Past Alcohol Use History: Occasional Past Drug Use History: None Reported - Past Family History Mother Family Medical History: Asthma, Coronary Artery Disease (CAD), Hypertension Father Additional Family Medical History / Comment(s): at age 49 Medications and Allergies Home Medications Medication Instructions Recorded Confirmed Type Albuterol Sulfate [Proair Hfa] 2 puff INHALATION RT-Q4H PRN 11/30/20 11/30/20 History Alendronate Sodium [Fosamax] 70 mg PO MO 11/30/20 11/30/20 History Aspirin EC [Ecotrin Low Dose] 81 mg PO HS 11/30/20 11/30/20 History Baclofen [Lioresal] 20 mg PO BID 11/30/20 11/30/20 History Hydroxychloroquine Sulfate 200 mg PO CHOWDHURY 11/30/20 11/30/20 History [Plaquenil] Labetalol HCl 200 mg PO BID 11/30/20 11/30/20 History Losartan Potassium 100 mg PO Q48H 11/30/20 11/30/20 History Multivitamins, Thera [Multivitamin 1 tab PO DAILY 11/30/20 11/30/20 History (formulary)] Omeprazole [PriLOSEC] 20 mg PO AC-BID 11/30/20 11/30/20 History cloNIDine HCL [Catapres] 0.1 mg PO HS 11/30/20 11/30/20 History cycloSPORINE 0.05% OPHTH SOLN 1 drop BOTH EYES BID 11/30/20 11/30/20 History [Restasis] rOPINIRole HCL [Requip] 4 mg PO HS 11/30/20 11/30/20 History tiZANidine HCL [Zanaflex] 8 mg PO HS 11/30/20 11/30/20 History Allergies Allergy/AdvReac Type Severity Reaction Status Date / Time celecoxib [From Celebrex] AdvReac Unknown Verified 11/30/20 21:37 fentanyl AdvReac Unknown Verified 11/30/20 21:37 Sulfa (Sulfonamide AdvReac Unknown Verified 11/30/20 21:37 Antibiotics) Physical Exam Vitals: Vital Signs Temp Pulse Pulse Resp BP BP Pulse Ox 12/01/20 07:40 97.8 F 82 14 146/68 94 L 12/01/20 04:00 97.3 F L 82 16 168/82 96 12/01/20 02:00 18 12/01/20 01:18 97.7 F 81 16 198/83 95 11/30/20 19:00 176/75 11/30/20 18:10 18 11/30/20 17:06 98.1 F 83 18 190/78 98 Intake and Output 11/30/20 12/01/20 12/01/20 22:59 06:59 14:59 Other: Voiding Method Toilet # Voids 1 Weight 58.06 kg 58.5 kg Results CBC & Chem 7: 11/30/20 18:00 11/30/20 18:00 Labs: Abnormal Lab Results - Last 24 Hours (Table) 11/30/20 11/30/20 Range/Units 18:00 23:56 D-Dimer 1.16 H (<0.60) mg/L FEU Sodium 131 L (137-145) mmol/L Glucose 104 H (74-99) mg/dL Total Bilirubin <0.1 L (0.2-1.3) mg/dL AST 44 H (14-36) U/L Thrombosis Risk Factor Assmnt - Choose All That Apply Each Risk Factor Represents 2 Points: Age 61-74 years Thrombosis Risk Factor Assessment Total Risk Factor Score: 2 Thrombosis Risk Factor Assessment Level: Low Risk
[2020-12-01] MEDS ORDERED: LOSARTAN 25 MG TAB PO STA (12:45)
--- NOTE | 2020-12-01 12:59 | ECHOF ---
Referral Reason:syncope, ekg changes MEASUREMENTS -------- HEIGHT: 157.5 cm WEIGHT: 58.1 kg BP: IVSd: 2.0 cm (0.6 - 1.1) LVIDd: 3.4 cm (3.9 - 5.3) LVPWd: 1.0 cm (0.6 - 1.1) EDV(Teich): 48 ml IVSs: 2.4 cm LVIDs: 1.2 cm LVPWs: 1.9 cm %IVS Thck: 19 % ESV(Teich): 3 ml EF(Teich): 93 % %FS: 65 % SV(Teich): 45 ml RVIDd: 2.5 cm (< 3.3) IVC: 16.35 mm LALs A4C: 5.8 cm LAAs A4C: 22.3 cm LAESV A-L A4C: 73 ml LAESV MOD A4C: 62 ml LALs A2C: 5.4 cm LAAs A2C: 15.5 cm LAESV A-L A2C: 38 ml LAESV MOD A2C: 35 ml LAESV(A-L): 54 ml LAESV Index (A-L): 34.46 ml/m Ao Diam: 2.9 cm (2.0 - 3.7) LA Diam: 3.0 cm (2.7 - 3.8) AV Cusp: 1.7 cm (1.5 - 2.6) EPSS: 1.2 cm MV E Sergey: 0.90 m/s MV DecT: 166 ms MV Dec Spencer: 5.4 m/s MV A Sergey: 1.05 m/s MV E/A Ratio: 0.85 MV PHT: 48 ms MR Vmax: 1.53 m/s MR maxP.41 mmHg AV Vmax: 1.73 m/s AV maxP.96 mmHg AV Vmax: 1.71 m/s AV Vmean: 1.24 m/s AV maxP.65 mmHg AV meanP.66 mmHg AV Env.Ti: 295 ms AV VTI: 36.6 cm AR Vmax: 2.37 m/s AR maxP.38 mmHg AR PHT: 780 ms AR Dec Time: 2691 ms AR Dec Spencer: 0.9 m/s TR Vmax: 3.17 m/s TR maxP.07 mmHg RAP: 5.00 mmHg RVSP: 45.07 mmHg MV EF SLOPE: 44.67 mm/s (70 - 150) MV EXCURSION: 14.64 mm (> 18.000) FINDINGS -------- This was a technically good study. The left ventricular size is normal. There is moderate concentric left ventricular hypertrophy. O verall left ventricular systolic function is normal with, an EF between 55 - 60 %. Increased LAP Gr les 2 Diastolic Dysfunction. The right ventricle is normal in size. LA is moderately dilated 34-39 ml/m2 The right atrial size is normal. Aortic valve is trileaflet and is mildly thickened. There is mild aortic valve sclerosis. There i s mild aortic regurgitation. Peak/mean gradient across the Aortic Valve is 11.65mmHg / 6.66mmHg. The mitral valve is normal. The mitral valve leaflets are mildly thickened. Mild mitral annular c alcification present. Mild mitral regurgitation is present. Cannot exclude mitral valve prolapse. The tricuspid valve appears structurally normal. Mild tricuspid regurgitation present. There is m ild pulmonary hypertension. The right ventricular systolic pressure, as measured by Doppler, is 45. 07mmHg. There is no pulmonic regurgitation present. The aortic root size is normal. Normal inferior vena cava with normal inspiratory collapse consistent with estimated right atrial pre ssure of 5 mmHg. There is no pericardial effusion. CONCLUSIONS -------- 1. The left ventricular size is normal. 2. There is moderate concentric left ventricular hypertrophy. 3. Overall left ventricular systolic function is normal with, an EF between 55 - 60 %. 4. Increased LAP Grade 2 Diastolic Dysfunction. 5. LA is moderately dilated 34-39 ml/m2 6. Aortic valve is trileaflet and is mildly thickened. 7. There is mild aortic valve sclerosis. 8. There is mild aortic regurgitation. 9. Peak/mean gradient across the Aortic Valve is 11.65mmHg / 6.66mmHg. 10. The mitral valve leaflets are mildly thickened. 11. Mild mitral annular calcification present. 12. Mild mitral regurgitation is present. 13. Cannot exclude mitral valve prolapse. 14. Mild tricuspid regurgitation present. 15. There is mild pulmonary hypertension. 16. The right ventricular systolic pressure, as measured by Doppler, is 45.07mmHg. 17. There is no pericardial effusion. LAMINATE FLOOR INSTALLER: Sada Hammond RDCS
[2020-12-01] MEDS: MULTIVITAMINS, THERA 1 EACH TAB PO SCH (13:29)
[2020-12-01] MEDS: PANTOPRAZOLE 40 MG TABLET PO SCH ×2 (13:29→17:15)
[2020-12-01] MEDS: BACLOFEN 10 MG TAB PO SCH ×2 (13:30→20:20)
[2020-12-01] MEDS: cycloSPORINE 0.05% OPHTH 0.4 ML DROPERETTE BOTH EYES SCH ×2 (13:31→20:19)
--- NOTE | 2020-12-01 16:25 | NM ---
EXAMINATION TYPE: NM myocardial SPECT single DATE OF EXAM: 12/01/2020 COMPARISON: NONE HISTORY: Chest pain Following administration of 9.3 mCi Tc 99m Sestamibi. Images obtained 45 minutes post injection. FINDINGS: Calculated ejection fraction is 51% Rest only examination was performed. There is decreased perfusion involving the anterior wall, raymond septal wall as well as the lateral wall. IMPRESSION: There is decreased perfusion involving the anterior wall, anteroseptal wall as well as the lateral wa ll.
[2020-12-01] MEDS: HEPARIN SODIUM,PORCINE/PF 5,000 UNIT/0.5 ML SYRINGE SQ SCH ×2 (17:15→23:07)
--- NOTE | 2020-12-01 19:47 | CT ---
EXAMINATION TYPE: CT angio chest DATE OF EXAM: 12/01/2020 COMPARISON: 03/30/2019 HISTORY: Shortness of breath CT DLP: 229.8 mGycm Automated exposure control for dose reduction was used. CONTRAST: Performed with IV Contrast, patient injected with 100 mL of Isovue 370. Images obtained from the thoracic inlet to the diaphragm with IV contrast. There are 3-D post process ed images. There is some groundglass patchy interstitial infiltrates in both lungs. Heart is borderline enlarged . There is no pericardial effusion. There are surgical clips in the left breast with 2.6 cm mass behi nd the left nipple. There is no pleural effusion. There is moderate-sized hiatal hernia. There are no hilar masses. There is no mediastinal adenopathy. Thoracic aorta appears intact. There is no aneurysm or dissection. The ascending aorta measures 3.5 cm. The thoracic spine is intact. There is no significant compression deformity. There is 15% anterior we dging of L1 vertebra that appears old. IMPRESSION: No evidence of pulmonary embolism. There is new bilateral patchy groundglass interstitial infiltrate in the lungs. Moderate hiatal hernia unchanged. No pleural fluid. Left breast mass unchanged.
[2020-12-01] MEDS: tiZANidine 4 MG TAB PO SCH (20:18)
[2020-12-01] MEDS: ASPIRIN 81 MG PO SCH (20:20)
[2020-12-02] MEDS: PANTOPRAZOLE 40 MG TABLET PO SCH ×2 (06:52→17:05)
[2020-12-02] MEDS: CHLORTHALIDONE 25 MG TAB PO SCH (08:58)
[2020-12-02] MEDS: MULTIVITAMINS, THERA 1 EACH TAB PO SCH (08:58)
[2020-12-02] MEDS: BACLOFEN 10 MG TAB PO SCH ×2 (08:58→20:18)
[2020-12-02] MEDS: LOSARTAN 50 MG TAB PO SCH (08:58)
[2020-12-02] MEDS: HEPARIN SODIUM,PORCINE/PF 5,000 UNIT/0.5 ML SYRINGE SQ SCH ×3 (08:58→23:06)
[2020-12-02] MEDS: cycloSPORINE 0.05% OPHTH 0.4 ML DROPERETTE BOTH EYES SCH ×2 (08:59→20:18)
[2020-12-02] MEDS: LABETALOL 200 MG TAB PO SCH ×2 (08:59→20:18)
[2020-12-02] MEDS ORDERED: LOSARTAN 25 MG TAB PO SCH (09:00)
--- NOTE | 2020-12-02 09:20 | P.PN ---
Subjective Progress Note Date: 12/02/20 Principal diagnosis: Syncopal episode This is a 75-year-old female patient with a past medical history significant for hypertension was admitted to the hospital with syncope. The EKG showed sinus rhythm with T-wave inversion concerning for severe underlying coronary artery disease. For that reason the patient scheduled yesterday to undergo a stress test but that was canceled because off elevated blood pressure. The echo showed normal left ventricle systolic function was m itral valve prolapse. No arrhythmia noted overnight. She denies any symptoms of chest pain or chest discomfort. The pressure continues to be not well- controlled I'm going to increase the dose of losartan and add thiazide diuretics the current medical regimen. I advised the patient to stay overnight one more day. She underwent a computed tomography scan of the chest and that showed no PE. Objective - Vital Signs Vital signs: Vital Signs Temp 98 F 12/02/20 08:55 Pulse 75 12/02/20 08:55 Resp 16 12/02/20 08:55 BP 174/69 12/02/20 08:55 Pulse Ox 97 12/02/20 08:55 Intake & Output 12/01/20 12/02/20 12/02/20 18:59 06:59 18:59 Intake Total 237 Balance 237 Weight 58 kg Intake: Oral 237 Other: Voiding Method Toilet Toilet # Voids 1 - Constitutional General appearance: Present: no acute distress - Respiratory Respiratory: bilateral: CTA - Cardiovascular Rhythm: regular - Labs CBC & Chem 7: 11/30/20 18:00 11/30/20 18:00 Assessment and Plan Assessment: Assessment #1 an episode of syncope #2 abnormal EKG concerning for severe CAD #3 systolic murmur on examination #4 hypertension Plan #1 acute coronary syndrome was ruled out #2 no arrhythmia so far #3 increase the dose of losartan #4 add Dyazide diuretics #5 monitor the patient for additional 24-hour
--- NOTE | 2020-12-02 16:49 | P.PN ---
Subjective Progress Note Date: 12/02/20 HISTORY OF PRESENT ILLNESS This is a 75-year-old female patient of Dr. Cohen with past medical history of hypertension, breast cancer, spinal stenosis, restless leg syndrome. Patient states that on Friday she had passed out fell and hit her head. She denied having any chest pain, lightheadedness or dizziness or palpitations at that time. Patient was in the office with Dr. Cohen yesterday and EKG was found to be abnormal with T-wave inversions and 1, aVL, V3 through 6 which was new when compared to EKG from May. Patient denies having any episodes of chest pain over the past months between. Her last echocardiogram in September revealed EF of 55%, trace aortic regurgitation, trace mitral regurgitation, no aortic stenosis. Patient was sent into [facility] emergency center for evaluation. Patient was found to be afebrile, heart rate in the 80s, blood pressure initially 190/78, pulse ox 90% on room air. CBC was unremarkable. Sodium 131 otherwise electrolytes and renal function were normal. Blood sugar 104. D-dimer 1.16. Troponin negative on 2 draws. ProBNP 3470. Urinalysis negative. Chest x-ray showed no acute process. Changes concerning for coronary artery disease and patient was placed on the cardiac stepdown unit, consult consult with cardiology, echocardiogram, Lexiscan stress test was ordered. CTA of the chest will be ordered to rule out pulmonary embolism. 12/02: Patient is doing much better today, however CAT scan was negative for PE, there is new interstitial infiltrates that were seen, however patient's of having any cough no shortness of breath, blood pressure is elevated, especially during the stress test was performed. It was subsequently discontinued, SPECT- NM cardiac, shows decreased wall perfusion, patient was started on [place] Elvia, to control the blood pressure. Patient is also titrated up on losartan, and hydrocodone 5 site. Patient's on Catapres 0.1 mg at bedtime, dizziness no change. Patient has low blood pressure, causing her to pass out when Catapres was increased to twice a day. Check orthostatics REVIEW OF SYSTEMS Constitutional: No fever, no chills, no night sweats. No weight change. No weakness, fatigue or lethargy. No daytime sleepiness. EENT: No headache. No blurred vision or double vision, no loss of vision. No loss of Hearing, no ringing in the ears, no dizziness. No nasal drainage or congestion. No epistaxis. No sore throat. Lungs: No shortness of breath, cough, no sputum production. No wheezing. Cardiovascular: No chest pain, no lower extremity edema. No palpitations. No paroxysmal nocturnal dyspnea. No orthopnea. No lightheadedness or dizziness. Reported syncopal episode that occurred on Friday. Abdominal: No abdominal pain. No nausea, vomiting. No diarrhea. No constipation. No bloody or tarry stools.. No loss of appetite. Genitourinary: No dysuria, increased frequency, urgency. No urinary retention. Musculoskeletal: No myalgias. No muscle weakness, no gait dysfunction, no frequent falls. No back pain. No neck pain. Integumentary: No wounds, no lesions. No rash or pruritus. No unusual bruising. No change in hair or nails. Ecchymosis left face. Neurologic: No aphasia. No facial droop. No change in mentation. No head injury. No headache. No paralysis. No paresthesia. Psychiatric: No depression. No anxiety. No mood swings. Endocrine: No abnormal blood sugars. No weight change. Objective - Vital Signs Vital signs: Vital Signs Temp 98.5 F 12/02/20 15:56 Pulse 66 12/02/20 15:56 Resp 16 12/02/20 15:56 BP 176/72 12/02/20 15:56 Pulse Ox 94 L 12/02/20 15:56 Intake & Output 12/01/20 12/02/20 12/02/20 18:59 06:59 18:59 Intake Total 237 480 Output Total 300 Balance 237 180 Weight 58 kg Intake: Oral 237 480 Output: Urine 300 Other: Voiding Method Toilet Toilet Toilet # Voids 1 - Constitutional General appearance: Present: no acute distress - EENT Eyes: Present: EOMI, PERRLA, dentition normal, normal appearance ENT: Present: NA/AT, normal oropharynx - Neck Neck: Present: normal ROM - Respiratory Respiratory: bilateral: CTA, negative: diminished, dullness - Cardiovascular Rhythm: regular Heart sounds: normal: S1, S2 Abnormal Heart Sounds: Absent: systolic murmur, diastolic murmur, rub, S3 Gallop, S4 Gallop, click, other - Gastrointestinal General gastrointestinal: Present: soft - Integumentary Integumentary: Present: decreased turgor, normal - Musculoskeletal Musculoskeletal: Present: gait normal - Psychiatric Psychiatric: Present: A&O x's 3, appropriate affect, intact judgment & insight - Labs CBC & Chem 7: 11/30/20 18:00 11/30/20 18:00 Assessment and Plan Plan: ASSESSMENT AND PLAN 1. Syncopal episode of unclear etiology. Continue cardiac monitoring to rule out arrhythmia, cardiology consult appreciated, stress test has been ordered. 2. Abnormal EKG concerning for coronary artery disease. Stress test ordered by cardiology. 3. Elevated d-dimer. CTA of the chest ordered to rule out pulmonary embolism. 4. Hypertension uncontrolled. Continue labetalol 200 mg twice daily, losartan 25 m increased to 100 mgg mg daily, Catapres 0.1 mg at bedtime. Cardiology has started chlorthalidone, 25 mg daily, and hydrocodone 5 site. 5. History of breast cancer, stable. 6. History of spinal stenosis and chronic back pain. Continue Zanaflex 8 mg at bedtime, baclofen 20 mg twice daily. 7. Restless leg syndrome. Continue Requip 4 mg at bedtime. 8. Gastroesophageal reflux disease and GI prophylaxis. Continue Protonix 40 mg twice daily. 9. DVT prophylaxis. Heparin subcu. [address] chest with new interstitial scattered infiltrate, patient's asymptomatic, calcitonin, significance of this is not known, no antibiotics at this time depending on Procalvvand sed rate CRP levels Patient will be admitted to the hospital for a minimum of 2 night stay. DISCHARGE PLAN Home.
[2020-12-02] MEDS ORDERED: hydrALAZINE HCL 20 MG/ML 1 ML VIAL IVP PRN (16:56)
[2020-12-02] MEDS: TRIAMCINOLONE ACET 0.5% CREAM 15 GM TUBE TOPICAL SCH (20:18)
[2020-12-02] MEDS: ASPIRIN 81 MG PO SCH (20:18)
[2020-12-02] MEDS: tiZANidine 4 MG TAB PO SCH (20:18)
[2020-12-02] MEDS: cloNIDine HCL 0.1 MG TAB PO SCH (20:18)
[2020-12-03] MEDS: PANTOPRAZOLE 40 MG TABLET PO SCH (06:29)
--- NOTE | 2020-12-03 07:40 | P.PN ---
Subjective Progress Note Date: 12/03/20 Principal diagnosis: Syncopal episode The patient was seen this morning. Her blood pressure is definitely better. Clinically she seems to be stable. No symptoms of chest pain or chest discomfort nor shortness of breath nor dizziness or lightheadedness or any feeling of heart racing or fluttering or presyncope or syncope. No arrhythmia noted. The echo showed normal left ventricle systolic function. The patient is requesting to go home because she is in process of driving outside the country. I requested the patient to get up and around to assess if she develop any chest pain or chest discomfort. Objective - Vital Signs Vital signs: Vital Signs Temp 98.2 F 12/03/20 04:32 Pulse 67 12/03/20 04:32 Resp 16 12/03/20 04:32 BP 143/67 12/03/20 04:32 Pulse Ox 96 12/03/20 04:32 Intake & Output 12/02/20 12/03/20 12/03/20 18:59 06:59 18:59 Intake Total 598 240 Output Total 600 Balance -2 240 Weight 56.4 kg Intake: Oral 598 240 Output: Urine 600 Other: Voiding Method Toilet Toilet # Voids 1 - Constitutional General appearance: Present: no acute distress - Respiratory Respiratory: bilateral: CTA - Cardiovascular Rhythm: regular Heart sounds: normal: S1, S2 Abnormal Heart Sounds: Present: systolic murmur - Labs CBC & Chem 7: 11/30/20 18:00 11/30/20 18:00 Assessment and Plan Assessment: Assessment #1 an episode of syncope #2 abnormal EKG #3 systolic murmur on examination #4 hypertension Plan #1 the blood pressure is better controlled #2 continue the current medical regimen
[2020-12-03] MEDS ORDERED: HYDROXYCHLOROQUINE SULFATE 200 MG TAB PO SCH (09:00)
[2020-12-03] MEDS: LABETALOL 200 MG TAB PO SCH (09:02)
[2020-12-03] MEDS: MULTIVITAMINS, THERA 1 EACH TAB PO SCH (09:02)
[2020-12-03] MEDS: HEPARIN SODIUM,PORCINE/PF 5,000 UNIT/0.5 ML SYRINGE SQ SCH (09:02)
[2020-12-03] MEDS: BACLOFEN 10 MG TAB PO SCH (09:02)
[2020-12-03] MEDS: LOSARTAN 50 MG TAB PO SCH (09:02)
[2020-12-03] MEDS: CHLORTHALIDONE 25 MG TAB PO SCH (09:03)
[2020-12-03] MEDS: cycloSPORINE 0.05% OPHTH 0.4 ML DROPERETTE BOTH EYES SCH (09:03)
[2020-12-03] MEDS: TRIAMCINOLONE ACET 0.5% CREAM 15 GM TUBE TOPICAL SCH (09:03)
[2020-12-03 12:36] VITALS: BP 151/68; PULSE 68; RESP 18; TEMP 98.4
--- NOTE | 2020-12-03 14:54 | P.DS ---
Providers Date of admission: 12/02/20 14:27 Expected date of discharge: 12/03/20 Attending physician: Don Cohen Consults: 11/30/20 19:14 Consult Physician Urgent Consulting Provider: Martin Finnegan Consult Reason/Comments: EKG changes, syncope Do you want consulting provider notified?: Yes Primary care physician: [facility] Course: HISTORY OF PRESENT ILLNESS This is a 75-year-old female patient of Dr. Cohen with past medical history of hypertension, breast cancer, spinal stenosis, restless leg syndrome. Patient states that on Friday she had passed out fell and hit her head. She denied having any chest pain, lightheadedness or dizziness or palpitations at that time. Patient was in the office with Dr. Cohen yesterday and EKG was found to be abnormal with T-wave inversions and 1, aVL, V3 through 6 which was new when compared to EKG from May. Patient denies having any episodes of chest pain over the past months between. Her last echocardiogram in September revealed EF of 55%, trace aortic regurgitation, trace mitral regurgitation, no aortic stenosis. Patient was sent into [facility] emergency center for tiffanie luation. Patient was found to be afebrile, heart rate in the 80s, blood pressure initially 190/78, pulse ox 90% on room air. CBC was unremarkable. Sodium 131 otherwise electrolytes and renal function were normal. Blood sugar 104. D-dimer 1.16. Troponin negative on 2 draws. ProBNP 3470. Urinalysis negative. Chest x-ray showed no acute process. Changes concerning for coronary artery disease and patient was placed on the cardiac stepdown unit, consult consult with cardiology, echocardiogram, Lexiscan stress test was ordered. CTA of the chest will be ordered to rule out pulmonary embolism. 12/02: Patient is doing much better today, however CAT scan was negative for PE, there is new interstitial infiltrates that were seen, however patient's of having any cough no shortness of breath, blood pressure is elevated, especially during the stress test was performed. It was subsequently discontinued, SPECT- NM cardiac, shows decreased wall perfusion, patient was started on [place] Elvia, to control the blood pressure. Patient is also titrated up on losartan, and hydrocodone 5 site. Patient's on Catapres 0.1 mg at bedtime, dizziness no change. Patient has low blood pressure, causing her to pass out when Catapres was increased to twice a day. Check orthost 12/03 patient's doing better today, no chest pain no lightheadedness no dizziness, orthostatics were performed last night, blood pressures much better today, patient was requested to ambulate, and has no symptoms of chest pain shortness of breath lightheadedness, patient will be discharged today, with the medications that was titrated while in the hospital, follow-up with PCP, Dr. Finnegan as outpatient, patient is to complete the stress test that was not completed while in the hospital, Secondary to uncontrolled blood pressure REVIEW OF SYSTEMS Constitutional: No fever, no chills, no night sweats. No weight change. No weakness, fatigue or lethargy. No daytime sleepiness. EENT: No headache. No blurred vision or double vision, no loss of vision. No loss of Hearing, no ringing in the ears, no dizziness. No nasal drainage or congestion. No epistaxis. No sore throat. Lungs: No shortness of breath, cough, no sputum production. No wheezing. Cardiovascular: No chest pain, no lower extremity edema. No palpitations. No paroxysmal nocturnal dyspnea. No orthopnea. No lightheadedness or dizziness. Reported syncopal episode that occurred on Friday. Abdominal: No abdominal pain. No nausea, vomiting. No diarrhea. No constipation. No bloody or tarry stools.. No loss of appetite. Genitourinary: No dysuria, increased frequency, urgency. No urinary retention. Musculoskeletal: No myalgias. No muscle weakness, no gait dysfunction, no frequent falls. No back pain. No neck pain. Integumentary: No wounds, no lesions. No rash or pruritus. No unusual bruising. No change in hair or nails. Ecchymosis left face. Neurologic: No aphasia. No facial droop. No change in mentation. No head injury. No headache. No paralysis. No paresthesia. Psychiatric: No depression. No anxiety. No mood swings. Endocrine: No abnormal blood sugars. No weight change. ASSESSMENT AND PLAN 1. Syncopal episode of unclear etiology. Continue cardiac monitoring to rule out arrhythmia, cardiology consult appreciated, stress test has been ordered. Stress test was completed, to be done as an outpatient. Orthostatics negative, blood pressure is better controlled, could be vasovagal 2. Abnormal EKG concerning for coronary artery disease. Stress test ordered by cardiology. 3. Elevated d-dimer. CTA of the chest ordered to rule out pulmonary embolism. 4. Hypertension uncontrolled. Continue labetalol 200 mg twice daily, losartan 25 m increased to 100 mgg mg daily, Catapres 0.1 mg at bedtime. Cardiology has started chlorthalidone, 25 mg daily, and hydrocodone 5 site. 5. History of breast cancer, stable. 6. History of spinal stenosis and chronic back pain. Continue Zanaflex 8 mg at bedtime, baclofen 20 mg twice daily. 7. Restless leg syndrome. Continue Requip 4 mg at bedtime. 8. Gastroesophageal reflux disease and GI prophylaxis. Continue Protonix 40 mg twice daily. 9. DVT prophylaxis. Heparin subcu. [address] chest with new interstitial scattered infiltrate, patient's asymptomatic, calcitonin, significance of this is not known, no antibiotics at this time depending on Procal and sed rate CRP levels Patient will be admitted to the hospital for a minimum of 2 night stay. DISCHARGE PLAN Home. Plan - Discharge Summary Discharge Rx Participant: Yes New Discharge Prescriptions: New Chlorthalidone [Hygroton] 25 mg PO DAILY #30 tab Triamcinolone 0.5% Cream [Kenalog 0.5% Cream] 1 applic TOPICAL BID #30 gm Continue rOPINIRole HCL [Requip] 4 mg PO HS Omeprazole [PriLOSEC] 20 mg PO AC-BID cloNIDine HCL [Catapres] 0.1 mg PO HS tiZANidine HCL [Zanaflex] 8 mg PO HS Multivitamins, Thera [Multivitamin (formulary)] 1 tab PO DAILY Aspirin EC [Ecotrin Low Dose] 81 mg PO HS Alendronate Sodium [Fosamax] 70 mg PO MO Baclofen [Lioresal] 20 mg PO BID Albuterol Sulfate [Proair Hfa] 2 puff INHALATION RT-Q4H PRN PRN Reason: Shortness Of Breath cycloSPORINE 0.05% OPHTH SOLN [Restasis] 1 drop BOTH EYES BID Labetalol HCl 200 mg PO BID Hydroxychloroquine Sulfate [Plaquenil] 200 mg PO CHOWDHURY Losartan Potassium 100 mg PO Q48H #30 tab Discharge Medication List Albuterol Sulfate [Proair Hfa] 2 puff INHALATION RT-Q4H PRN 11/30/20 [History] Alendronate Sodium [Fosamax] 70 mg PO MO 11/30/20 [History] Aspirin EC [Ecotrin Low Dose] 81 mg PO HS 11/30/20 [History] Baclofen [Lioresal] 20 mg PO BID 11/30/20 [History] Hydroxychloroquine Sulfate [Plaquenil] 200 mg PO CHOWDHURY 11/30/20 [History] Labetalol HCl 200 mg PO BID 11/30/20 [History] Multivitamins, Thera [Multivitamin (formulary)] 1 tab PO DAILY 11/30/20 [History] Omeprazole [PriLOSEC] 20 mg PO AC-BID 11/30/20 [History] cloNIDine HCL [Catapres] 0.1 mg PO HS 11/30/20 [History] cycloSPORINE 0.05% OPHTH SOLN [Restasis] 1 drop BOTH EYES BID 11/30/20 [History] rOPINIRole HCL [Requip] 4 mg PO HS 11/30/20 [History] tiZANidine HCL [Zanaflex] 8 mg PO HS 11/30/20 [History] Chlorthalidone [Hygroton] 25 mg PO DAILY #30 tab 12/03/20 [Rx] Losartan Potassium 100 mg PO Q48H #30 tab 12/03/20 [Rx] Triamcinolone 0.5% Cream [Kenalog 0.5% Cream] 1 applic TOPICAL BID #30 gm 12/03/20 [Rx] Follow up Appointment(s)/Referral(s): Don Cohen MD [Primary Care Provider] - 1-2 days Martin Finnegan MD [STAFF PHYSICIAN] - 1 Week Discharge Disposition: HOME SELF-CARE
[2020-12-04] MEDS ORDERED: NON FORMULARY DRUG (Alendronate Sodium [Fosamax] 70 MG Tablet) PO SCH (02:21)
== END 2020-12-03 16:20 | disposition home or self-care (01) | DRG 312 ==
LOC: EC 15:21 → 3SCARD 22:06 → OBSVTOIN 12-02 14:27 → 3SCARD 12-03 09:39
PROVIDERS: ADMIT Internal Medicine Geriatric Medicine; ATTEND Internal Medicine Geriatric Medicine
DX: R55 Syncope and collapse (principal); G25.81 Restless legs syndrome; K44.9 Diaphragmatic hernia without obstruction or gangrene; R94.31 Abnormal electrocardiogram [ECG] [EKG]; I34.1 Nonrheumatic mitral (valve) prolapse; S20.211A Contusion of right front wall of thorax, initial encounter; S00.83XA Contusion of other part of head, initial encounter; G89.29 Other chronic pain; I08.0 Rheumatic disorders of both mitral and aortic valves; M48.00 Spinal stenosis, site unspecified; I10 Essential (primary) hypertension; W19.XXXA Unspecified fall, initial encounter; R01.1 Cardiac murmur, unspecified; Z79.83 Long term (current) use of bisphosphonates; Z79.899 Other long term (current) drug therapy; Z85.3 Personal history of malignant neoplasm of breast; Z85.820 Personal history of malignant melanoma of skin; Z87.891 Personal history of nicotine dependence; Z88.2 Allergy status to sulfonamides; Z88.5 Allergy status to narcotic agent
CPT/HCPCS: 36415; 71046; 71275; 78451; 80053; 81003; 83735; 83880; 84145; 84484; 85025; 85379; 85610; 85652; 85730; 86140; 93005; 93306; 94760; 96360; 99285

== ENCOUNTER 2021-01-31 05:59 | Day surgery (SDC) | payer MEDICARE, OTHER ==
[2021-01-29 12:32] VITALS: BMI 22.6
[~2021-01-31 05:59] MED LIST: ALPRAZolam 0.25 MG TAB PO PRN; ALPRAZolam 0.5 MG TAB PO PRN; ASPIRIN 325 MG TAB PO STA; ATORVASTATIN 80 MG TAB PO STA; HEPARIN SODIUM,PORCINE 10,000 UNIT in SODIUM CHLORIDE 0.9% 1,000 ML IRRIGATION PRN; HEPARIN SODIUM,PORCINE 2,500 UNIT in SODIUM CHLORIDE 0.9% 250 ML IRRIGATION PRN; NITROGLYCERIN SL TABS 0.4 MG TAB SUBLINGUAL PRN
[2021-01-31] MEDS ORDERED: SODIUM CHLORIDE 0.9% 1,000 ML IV ONE (06:48)
[2021-01-31 07:22] LABS: African American GFR (CKD) >90 (>60 ml/min/1.73 sqM); Anion Gap 9 mmol/L; Blood Urea Nitrogen 15 mg/dL (7-17); Calcium 9.2 mg/dL (8.4-10.2); Carbon Dioxide 26 mmol/L (22-30); Chloride 91 mmol/L (98-107); Glucose 87 mg/dL (74-99); Non-African American GFR(CKD) >90 (>60 ml/min/1.73 sqM); Sodium 126 mmol/L (137-145)
[2021-01-31 07:26] LABS: Basophils % (A) 1 %; Eosinophils # (A) 0.2 k/uL (0-0.7); Eosinophils % (A) 4 %; HCT 35.2 % (34.0-46.0); Lymphocytes # (A) 1.2 k/uL (1.0-4.8); Lymphocytes % (A) 32 %; MCH 31.7 pg (25.0-35.0); MCHC 34.1 g/dL (31.0-37.0); Mean Platelet Volume 8.6; Monocytes # (A) 0.4 k/uL (0-1.0); Monocytes % (A) 10 %; Neutrophils % (A) 50 %; Platelet Count 242 k/uL (150-450); RBC 3.78 m/uL (3.80-5.40); RDW 14.2 % (11.5-15.5); WBC 3.9 k/uL (3.8-10.6)
[2021-01-31 07:32] LABS: Potassium 4.3 mmol/L (3.5-5.1)
[2021-01-31] MEDS: MIDAZOLAM 2 MG/2 ML VIAL IV ONE ×4 (08:38→08:59)
[2021-01-31] MEDS ORDERED: LIDOCAINE 1% INJ 10MG/ML (20 ML MDV) SQ ONE (08:41)
[2021-01-31] MEDS ORDERED: VERAPAMIL SYRINGE (5 MG/10 ML) INTRAARTER ONE (08:43)
[2021-01-31] MEDS ORDERED: IOPAMIDOL-370 125ML BTL INJ ONE (09:12)
[2021-01-31] MEDS ORDERED: CLOPIDOGREL 75 MG TAB PO ONE (09:17)
[2021-01-31] MEDS ORDERED: NITROGLYCERIN 1000MCG/10ML SYRINGE INTRACORON ONE (09:17)
[2021-01-31] MEDS ORDERED: IOPAMIDOL-370 100ML BTL INJ ONE (09:18)
[2021-01-31] MEDS ORDERED: RX INFO: IV CONTRAST WAS GIVEN 1 EACH MISC MISCELLANE PRN (09:25)
[2021-01-31] MEDS ORDERED: SODIUM CHLORIDE 0.9% 1,000 ML IV SCH (09:30)
--- NOTE | 2021-01-31 11:07 | CC ---
CARDIAC CATHETERIZATION REPORT DATE OF SERVICE: 01/31/2021 PERFORMING PHYSICIAN: Martin Finnegan M.D. PROCEDURES PERFORMED: 1. Selective right and left coronary angiogram. 2. Left heart catheterization. 3. Fractional flow reserve (FFR) of the left circumflex coronary artery. 4. Successful stenting of the mid left circumflex using a 2.75 x 23 mm Xience drug- eluting stent with an excellent angiographic result and reduction of stenosis from 80% to 0% without any complication. INDICATION: This is a 75-year-old female patient with hypertension and dyslipidemia who was experiencing symptoms of chest pain and shortness of breath with exertion concerning for severe coronary artery disease. The EKG was ischemic with deep T-wave inversion in the anterolateral leads. Because of that and because the patient would like a definite diagnosis, a heart catheterization was advised. APPROACH: Right radial artery. COMPLICATIONS: None. LEVEL OF SEDATION: Moderate, with sedation length of 38 minutes. PROCEDURE DESCRIPTION: After obtaining informed consent, the patient was brought to the cardiac lab clerk. The right radial artery was cannulated using micropuncture technique. The micropuncture wire passed easily. Then I placed a 6-Chilean sheath at the right radial artery. Heparin 5000 units was given along with 2 mg of verapamil IA given as well. I did perform selective right and left coronary angiogram using JR4 and JL3.5 catheters. Left heart catheterization was performed using a 5-Chilean pigtail catheter. After that, I did an FFR of the left circumflex. Please see separate paragraph for that. After that I did intervene on the left circumflex. Please see separate paragraph for that. SELECTIVE CORONARY ANGIOGRAM: 1. The right coronary artery is a large-caliber vessel and it is a dominant vessel. The RCA has an intermediate lesion in the mid portion that appeared to be in the range of 50%. 2. The left main is angiographically normal. It bifurcates into LCX and LAD. 3. The LCX proximally appeared to have mild disease only. It gives rise to a large OM branch, which appeared to be angiographically normal. The left circumflex in the mid portion has a lesion that appeared to be in the range of 60% to 70%. IFR was performed and came in to be ischemic at 0.87. The left circumflex distally appeared to be angiographically normal. 4. The LAD is a large-caliber vessel. The LAD proximally has mild to moderate disease. It gives rise to a large diagonal branch which appeared to be angiographically normal. The mid LAD appeared to have mild disease only. LAD distally is tortuous with diffuse disease. 5. HEMODYNAMICS: The LVEDP was 18 mmHg without significant gradient across the aortic valve. IFR OF THE LEFT CIRCUMFLEX AND PCI OF THE LEFT CIRCUMFLEX: Anticoagulation was completed using heparin with continuous ACT monitoring throughout the procedure. After that, after zeroing the Doppler wire and equalizing between the Doppler wire and the guiding catheter, which was a JL3.5 guiding catheter, the left circumflex was wired using the Doppler wire and we did an IFR that came in to be ischemic at 0.87. After that, I did wire the left circumflex. I pulled the Doppler wire because I had a hard time advancing it distal in the left circumflex and I replaced it with a run- through wire. Balloon angioplasty was performed using a 2.5 mm balloon. Subsequently I deployed a 2.75 x 23 mm Xience XAVIER where the stent was positioned under fluoroscopic guidance and deployed under its nominal pressure. The following angiogram showed excellent angiographic results and the procedure was completed without any complication. CONCLUSION: 1. Intermittent episodes of chest discomfort and shortness of breath with exertion in this 75-year-old female patient with hypertension and dyslipidemia. The chest discomfort and shortness of breath were concerning for angina. 2. Severe disease involving the mid left circumflex coronary artery documented by IFR. I did perform successful stenting of the left circumflex using a 2.75 x 23 mm Xience drug-eluting stent with an excellent angiographic result. 3. Intermediate lesion involving the proximal left anterior descending artery; appeared to be in the range of 50% to 60%. That lesion needs to be managed medically at this point. 4. Intermediate lesion involving the mid right coronary artery that appeared to be in the range of 50% to 60% as well. This lesion will be managed medically as well. 5. Mildly elevated left-sided filling pressure with LVEDP of 18 mmHg. POST-PROCEDURE MANAGEMENT: 1. Aggressive cholesterol control. 2. Blood pressure management. 3. Risk factor modifications. 4. Dual anti-platelet therapy. 5. Follow up with the patient. MMODL / IJN: [id number] /
--- NOTE | 2021-01-31 12:54 | P.CONS ---
History of Present Illness - Reason for Consult Consult date: 01/31/21 Medical management - History of Present Illness HISTORY OF PRESENT ILLNESS This is a 75-year-old female patient of Dr. Cohen with past medical history of hypertension, breast cancer, spinal stenosis, restless leg syndrome. Patient had recent hospitalization in November after she had passed out fell and hit her head and EKG was found to be abnormal with T-wave inversions and 1, aVL, V3 through 6 which was new when compared to EKG from May. CTA of the chest was negative for pulmonary embolism. Stress test was performed. It was subsequently discontinued, SPECT-NM cardiac, shows decreased wall perfusion. blood pressure issues were addressed and patient was discharged home. She trave led to [place] and has been having symptoms of feeling tired some pressure in her chest especially when she walks up steps, lower extremity edema and generalized malaise. Patient was brought in the hospital by Dr. Finnegan underwent left heart catheterization that found severe disease in the left circumflex, LAD mild to moderate disease of approximately 50-60%, right coronary artery 50-60%, and underwent stenting of the left circumflex. Patient is seen today in the extended stay unit. She does not have any active chest pain. REVIEW OF SYSTEMS Constitutional: No fever, no chills, no night sweats. No weight change. No weakness, fatigue or lethargy. No daytime sleepiness. EENT: No headache. No blurred vision or double vision, no loss of vision. No loss of Hearing, no ringing in the ears, no dizziness. No nasal drainage or congestion. No epistaxis. No sore throat. Lungs: No shortness of breath, cough, no sputum production. No wheezing. Cardiovascular: No chest pain, no lower extremity edema. No palpitations. No paroxysmal nocturnal dyspnea. No orthopnea. No lightheadedness or dizziness. Reported syncopal episode that occurred on Friday. Abdominal: No abdominal pain. No nausea, vomiting. No diarrhea. No constipation. No bloody or tarry stools.. No loss of appetite. Genitourinary: No dysuria, increased frequency, urgency. No urinary retention. Musculoskeletal: No myalgias. No muscle weakness, no gait dysfunction, no frequent falls. No back pain. No neck pain. Integumentary: No wounds, no lesions. No rash or pruritus. No unusual b ruising. No change in hair or nails. Ecchymosis left face. Neurologic: No aphasia. No facial droop. No change in mentation. No head injury. No headache. No paralysis. No paresthesia. Psychiatric: No depression. No anxiety. No mood swings. Endocrine: No abnormal blood sugars. No weight change. SOCIAL HISTORY Patient was a smoker and quit when she was 33. She drinks alcohol occasionally. She does not have oxygen, CPAP, nebulizer. She lives at home with her .. FAMILY HISTORY Mother in her 80s with history of coronary artery disease. Father at age 49 from myasthenia gravis. Siblings have no major medical problems. Alan slaughter has one daughter that it passed at age 37 from bilateral carotid stenosis. PHYSICAL EXAMINATION Gen: This is a 75-year-old female. Patient is resting on stretch and appears to be comfortable and in no acute distress. HEENT: Head is atraumatic, normocephalic. Pupils equal, round. Sclerae is anicteric. Ecchymosis to the left orbital and cheek areas. NECK: Supple. No JVD. No lymphadenopathy. No thyromegaly. LUNGS: Clear to auscultation. No wheezes or rhonchi. No intercostal retractions. HEART: Regular rate and rhythm. Systolic murmur. ABDOMEN: Soft. Bowel sounds are present. No masses. No tenderness. EXTREMITIES: No pedal edema. No calf tenderness. Dorsalis pedis +2 bilaterally. NEUROLOGICAL: Patient is awake, alert and oriented x3. Cranial nerves 2 through 12 are grossly intact. ASSESSMENT AND PLAN 1. Coronary artery disease status post heart catheterization and stent of the left circumflex. Patient has been started on aspirin 81 mg daily, Plavix 75 mg daily, currently on heparin drip. 2. Hypertension. Continue labetalol 200 mg twice daily, losartan 25 mg daily, Catapres 0.1 mg at bedtime. 3. History of breast cancer, stable. 4. History of spinal stenosis and chronic back pain. Continue Zanaflex 8 mg at bedtime, baclofen 20 mg twice daily. 5. Restless leg syndrome. Continue Requip 4 mg at bedtime. 6. Gastroesophageal reflux disease and GI prophylaxis. Continue Protonix 40 mg twice daily. 7. DVT prophylaxis. Heparin subcu. DISCHARGE PLAN Home on . Impression and plan of care have been directed as dictated by the signing physician. Alta Lane nurse practitioner acting as scribe for signing physician. Past Medical History Past Medical History: Cancer, Hypertension Additional Past Medical History / Comment(s): RLS, melanoma face, breast cancer left History of Any Multi-Drug Resistant Organisms: None Reported Past Surgical History: Back Surgery, Breast Surgery, Section, Hernia Repair Additional Past Surgical History / Comment(s): thoracic and cervical spine surgery, lumpectomy left breast Past Anesthesia/Blood Transfusion Reactions: Postoperative Nausea & Vomiting (PONV) Smoking Status: Never smoker - Past Family History Mother Family Medical History: Asthma, Coronary Artery Disease (CAD), Hypertension Father Additional Family Medical History / Comment(s): at age 49 Medications and Allergies Home Medications Medication Instructions Recorded Confirmed Type Alendronate Sodium [Fosamax] 70 mg PO MO 11/30/20 01/31/21 History Aspirin EC [Ecotrin Low Dose] 81 mg PO HS 11/30/20 01/31/21 History Baclofen [Lioresal] 40 mg PO HS 11/30/20 01/31/21 History Hydroxychloroquine Sulfate 200 mg PO CHOWDHURY 11/30/20 01/31/21 History [Plaquenil] Labetalol HCl 200 mg PO BID 11/30/20 01/31/21 History Multivitamins, Thera [Multivitamin 1 tab PO DAILY 11/30/20 01/31/21 History (formulary)] Omeprazole [PriLOSEC] 20 mg PO BID 11/30/20 01/31/21 History cloNIDine HCL [Catapres] 0.1 mg PO HS 11/30/20 01/31/21 History rOPINIRole HCL [Requip] 4 mg PO HS 11/30/20 01/31/21 History tiZANidine HCL [Zanaflex] 8 mg PO HS 11/30/20 01/31/21 History Chlorthalidone [Hygroton] 25 mg PO DAILY #30 tab 12/03/20 01/31/21 Rx Losartan [Cozaar] 50 mg PO DAILY #30 tab 12/03/20 01/31/21 Rx Allergies Allergy/AdvReac Type Severity Reaction Status Date / Time celecoxib [From Celebrex] Allergy Rash/Hives Verified 01/29/21 12:22 fentanyl Allergy Unknown Verified 01/29/21 12:22 Sulfa (Sulfonamide Allergy Anaphylaxis Verified 01/29/21 12:22 Antibiotics) Physical Exam Vitals: Vital Signs Temp Pulse Pulse Resp BP BP Pulse Ox 01/31/21 09:51 66 16 141/64 98 01/31/21 09:36 65 16 141/87 98 01/31/21 06:46 98.1 F 62 18 134/64 164/68 99 Intake and Output 01/30/21 01/31/21 01/31/21 22:59 06:59 14:59 Intake Total 200 Balance 200 Intake: IV 200 Other: Weight 57.2 kg Results CBC & Chem 7: 01/31/21 06:39 01/31/21 06:39 Labs: Abnormal Lab Results - Last 24 Hours (Table) 01/31/21 01/31/21 Range/Units 06:39 06:39 RBC 3.78 L (3.80-5.40) m/uL Sodium 126 L (137-145) mmol/L Chloride 91 L (98-107) mmol/L
[2021-01-31] MEDS: SODIUM CHLORIDE 0.9% 1,000 ML in EMPTY BAG 1 BAG IV SCH (13:04)
[2021-01-31] MEDS: hydrALAZINE HCL 20 MG/ML 1 ML VIAL IVP PRN (16:25)
[2021-01-31] MEDS: LABETALOL 200 MG TAB PO SCH (20:02)
[2021-01-31] MEDS: PANTOPRAZOLE 40 MG TABLET PO SCH (20:02)
[2021-01-31] MEDS: BACLOFEN 10 MG TAB PO SCH (20:03)
[2021-01-31] MEDS ORDERED: cloNIDine HCL 0.1 MG TAB PO SCH (21:00)
[2021-01-31] MEDS ORDERED: rOPINIRole HCL 4 MG TABLET PO SCH (21:00)
[2021-01-31] MEDS ORDERED: tiZANidine 4 MG TAB PO SCH (21:00)
[2021-01-31] MEDS ORDERED: ASPIRIN 81 MG PO SCH (21:00)
[2021-02-01] MEDS: SODIUM CHLORIDE 0.9% 1,000 ML in EMPTY BAG 1 BAG IV SCH (01:19)
[2021-02-01 06:52] LABS: Basophils % (A) 1 %; Eosinophils # (A) 0.3 k/uL (0-0.7); Eosinophils % (A) 6 %; HCT 35.6 % (34.0-46.0); HGB 11.4 gm/dL (11.4-16.0); Lymphocytes # (A) 1.1 k/uL (1.0-4.8); Lymphocytes % (A) 25 %; MCH 30.6 pg (25.0-35.0); MCHC 32.2 g/dL (31.0-37.0); MCV 95.2 fL (80.0-100.0); Mean Platelet Volume 8.6; Monocytes # (A) 0.3 k/uL (0-1.0); Monocytes % (A) 8 %; Neutrophils # (A) 2.6 k/uL (1.3-7.7); Neutrophils % (A) 57 %; Platelet Count 246 k/uL (150-450); RBC 3.74 m/uL (3.80-5.40); RDW 14.6 % (11.5-15.5); WBC 4.5 k/uL (3.8-10.6)
[2021-02-01 07:02] LABS: African American GFR (CKD) >90 (>60 ml/min/1.73 sqM); Anion Gap 6 mmol/L; Blood Urea Nitrogen 8 mg/dL (7-17); Calcium 9.3 mg/dL (8.4-10.2); Carbon Dioxide 27 mmol/L (22-30); Chloride 95 mmol/L (98-107); Glucose 99 mg/dL (74-99); Non-African American GFR(CKD) >90 (>60 ml/min/1.73 sqM); Potassium 4.1 mmol/L (3.5-5.1); Sodium 128 mmol/L (137-145)
[2021-02-01] MEDS: BACLOFEN 10 MG TAB PO SCH (07:54)
[2021-02-01] MEDS: PANTOPRAZOLE 40 MG TABLET PO SCH (07:55)
[2021-02-01] MEDS: hydrALAZINE HCL 20 MG/ML 1 ML VIAL IVP PRN (07:56)
[2021-02-01 08:07] VITALS: BP 174/77; PULSE 61; RESP 16; TEMP 97.7
[2021-02-01] MEDS: LABETALOL 200 MG TAB PO SCH (08:32)
[2021-02-01] MEDS ORDERED: CLOPIDOGREL 75 MG TAB PO SCH (09:00)
[2021-02-01] MEDS ORDERED: MULTIVITAMINS, THERA 1 EACH TAB PO SCH (09:00)
[2021-02-01] MEDS ORDERED: CHLORTHALIDONE 25 MG TAB PO SCH (09:00)
[2021-02-01] MEDS ORDERED: LOSARTAN 50 MG TAB PO SCH (09:00)
--- NOTE | 2021-02-01 09:23 | P.DS ---
Providers Date of admission: January 312020 Attending physician: Martin Finnegan Consults: 01/31/21 09:31 Consult Physician Routine Consulting Provider: Don Cohen Reason/Comments: Medical Management Do you want consulting provider notified?: Yes Primary care physician: Don Cohen [facility] Course: This is a pleasant 75-year-old female patient who was admitted to the hospital yesterday and underwent a heart catheterization and was found to have intermediate two-vessel coronary artery disease and severe single-vessel coronary artery disease involving the left circumflex coronary artery. She underwent successful stenting of the left circumflex with an excellent angiographic results and without any complication from right radial approach. She was seen this morning. The right radial side is slightly swollen and she had some bleeding yesterday. She has a great pulse. I kept the TR band in place. Clinically she is asymptomatic and reports no chest pain or chest discomfort or shortness of breath. The blood pressure continues to be not well-controlled. We will adjust her medication and take care of that as an outpatient. She is going to be discharged on dual antiplatelet therapy along with high intensity statin. I will follow-up with the patient as an outpatient Plan - Discharge Summary Discharge Rx Participant: No New Discharge Prescriptions: New Atorvastatin [Lipitor] 80 mg PO HS #90 tab Clopidogrel [Plavix] 75 mg PO DAILY #90 tab Continue rOPINIRole HCL [Requip] 4 mg PO HS Omeprazole [PriLOSEC] 20 mg PO BID cloNIDine HCL [Catapres] 0.1 mg PO HS Chlorthalidone [Hygroton] 25 mg PO DAILY #30 tab Losartan [Cozaar] 50 mg PO DAILY #30 tab tiZANidine HCL [Zanaflex] 8 mg PO HS Multivitamins, Thera [Multivitamin (formulary)] 1 tab PO DAILY Aspirin EC [Ecotrin Low Dose] 81 mg PO HS Alendronate Sodium [Fosamax] 70 mg PO MO Baclofen [Lioresal] 40 mg PO HS Labetalol HCl 200 mg PO BID Hydroxychloroquine Sulfate [Plaquenil] 200 mg PO CHOWDHURY Discharge Medication List Alendronate Sodium [Fosamax] 70 mg PO MO 11/30/20 [History] Aspirin EC [Ecotrin Low Dose] 81 mg PO HS 11/30/20 [History] Baclofen [Lioresal] 40 mg PO HS 11/30/20 [History] Hydroxychloroquine Sulfate [Plaquenil] 200 mg PO CHOWDHURY 11/30/20 [History] Labetalol HCl 200 mg PO BID 11/30/20 [History] Multivitamins, Thera [Multivitamin (formulary)] 1 tab PO DAILY 11/30/20 [History] Omeprazole [PriLOSEC] 20 mg PO BID 11/30/20 [History] cloNIDine HCL [Catapres] 0.1 mg PO HS 11/30/20 [History] rOPINIRole HCL [Requip] 4 mg PO HS 11/30/20 [History] tiZANidine HCL [Zanaflex] 8 mg PO HS 11/30/20 [History] Chlorthalidone [Hygroton] 25 mg PO DAILY #30 tab 12/03/20 [Rx] Losartan [Cozaar] 50 mg PO DAILY #30 tab 12/03/20 [Rx] Atorvastatin [Lipitor] 80 mg PO HS #90 tab 02/01/21 [Rx] Clopidogrel [Plavix] 75 mg PO DAILY #90 tab 02/01/21 [Rx] Follow up Appointment(s)/Referral(s): Martin Finnegan MD [STAFF PHYSICIAN] - 02/07/21 2:45 pm Patient Instructions/Handouts: After Radial Heart Catheterization (GEN), Proced ural Sedation (ED) Activity/Diet/Wound Care/Special Instructions: No driving for two days Ok to shower tomorrow but no baths, pools, lakes, doing dishes by hand for five days. Signs of infection IE: fever, rash, drainage from puncture site, swelling go to ER/doctor for immediate evaluation. Avoid using right wrist/hand to bend, flex, lift greater than 5 lbs for five da ys. For Heavy Bleeding of puncture site apply firm direct pressure and return to ER. Do not attempt to drive self. low sodium/low fat diet
--- NOTE | 2021-02-01 10:23 | P.PN ---
Subjective Progress Note Date: 02/01/21 HISTORY OF PRESENT ILLNESS This is a 75-year-old female patient of Dr. Cohen with past medical history of hypertension, breast cancer, spinal stenosis, restless leg syndrome. Patient had recent hospitalization in November after she had passed out fell and hit her head and EKG was found to be abnormal with T-wave inversions and 1, aVL, V3 through 6 which was new when compared to EKG from May. CTA of the chest was negative for pulmonary embolism. Stress test was performed. It was subsequently discontinued, SPECT-NM cardiac, shows decreased wall perfusion. blood pressure issues were addressed and patient was discharged home. She traveled to [place] and has been having symptoms of feeling tired some pressure in her chest especially when she walks up steps, lower extremity edema and generalized malaise. Patient was brought in the hospital by Dr. Finnegan underwent left heart catheterization that found severe disease in the left circumflex, LAD mild to moderate disease of approximately 50-60%, right coronary artery 50-60%, and underwent stenting of the left circumflex. Patient is seen today in the extended stay unit. She does not have any active chest pain. 02/01: Patient denies chest pain, shortness of breath, no lightheadedness, no dizziness. Reviewed discharge medications with the patient. Patient has been afebrile, heart rate 61, blood pressure 174/77, pulse ox 99% on room air. Hemoglobin is 11.4. Sodium 128. BUN 8 and creatinine 0.5. Patient is prepared for discharge home today. REVIEW OF SYSTEMS Constitutional: No fever, no chills, no night sweats. No weight change. No weakness, fatigue or lethargy. No daytime sleepiness. EENT: No headache. No blurred vision or double vision, no loss of vision. No loss of Hearing, no ringing in the ears, no dizziness. No nasal drainage or congestion. No epistaxis. No sore throat. Lungs: No shortness of breath, cough, no sputum production. No wheezing. Cardiovascular: No chest pain, no lower extremity edema. No palpitations. No paroxysmal nocturnal dyspnea. No orthopnea. No lightheadedness or dizziness. Reported syncopal episode that occurred on Friday. Abdominal: No abdominal pain. No nausea, vomiting. No diarrhea. No constipation. No bloody or tarry stools.. No loss of appetite. Genitourinary: No dysuria, increased frequency, urgency. No urinary retention. Musculoskeletal: No myalgias. No muscle weakness, no gait dysfunction, no frequent falls. No back pain. No neck pain. Integumentary: No wounds, no lesions. No rash or pruritus. No unusual bruising. No change in hair or nails. Ecchymosis left face. Neurologic: No aphasia. No facial droop. No change in mentation. No head injury. No headache. No paralysis. No paresthesia. Psychiatric: No depression. No anxiety. Endocrine: No abnormal blood sugars. PHYSICAL EXAMINATION Gen: This is a 75-year-old female. Patient is resting on bed in no ac pilot station distress. HEENT: Head is atraumatic, normocephalic. Pupils equal, round. Sclerae is anicteric. NECK: Supple. No JVD. No lymphadenopathy. No thyromegaly. LUNGS: Clear to auscultation. No wheezes or rhonchi. No intercostal retractions. HEART: Regular rate and rhythm. Systolic murmur. ABDOMEN: Soft. Bowel sounds are present. No masses. No tenderness. EXTREMITIES: No pedal edema. No calf tenderness. Dorsalis pedis +2 bilaterally. NEUROLOGICAL: Patient is awake, alert and oriented x3. Cranial nerves 2 through 12 are grossly intact. ASSESSMENT AND PLAN 1. Coronary artery disease status post heart catheterization and stent of the left circumflex. Patient has been started on aspirin 81 mg daily, Plavix 75 mg daily, atorvastatin 80 mg daily. 2. Hypertension. Continue labetalol 200 mg twice daily, losartan 25 mg daily, Catapres 0.1 mg at bedtime. 3. History of breast cancer, stable. 4. History of spinal stenosis and chronic back pain. Continue Zanaflex 8 mg at bedtime, baclofen 20 mg twice daily. 5. Restless leg syndrome. Continue Requip 4 mg at bedtime. 6. Gastroesophageal reflux disease and GI prophylaxis. Continue Protonix 40 mg twice daily. 7. DVT prophylaxis. DISCHARGE PLAN Home Impression and plan of care have been directed as dictated by the signing physician. Alta Lane nurse practitioner acting as scribe for signing physician. Objective - Vital Signs Vital signs: Vital Signs Temp 97.7 F 02/01/21 07:00 Pulse 61 02/01/21 07:00 Resp 16 02/01/21 07:00 BP 174/77 02/01/21 07:00 Pulse Ox 99 02/01/21 07:00 Intake & Output 01/31/21 02/01/21 02/01/21 18:59 06:59 18:59 Intake Total 500 Balance 500 Weight 57.2 kg Intake: IV 500 Other: Voiding Method Toilet # Voids 1 2 - Labs CBC & Chem 7: 02/01/21 06:09 02/01/21 06:09 Labs: Abnormal Lab Results - Last 24 Hours (Table) 02/01/21 02/01/21 Range/Units 06:09 06:09 RBC 3.74 L (3.80-5.40) m/uL Sodium 128 L (137-145) mmol/L Chloride 95 L (98-107) mmol/L
[2021-02-04] MEDS ORDERED: HYDROXYCHLOROQUINE SULFATE 200 MG TAB PO SCH (09:00)
[2021-02-05] MEDS ORDERED: PATIENT'S OWN (Alendronate Sodium [Fosamax] 70 MG Tablet) PO SCH (07:00)
== END 2021-02-01 12:20 | disposition home or self-care (01) ==
LOC: CATHCVL 05:59 → 6NMEDSUR 09:20 → CATHCVL 02-01 12:20
PROVIDERS: ATTEND Internal Medicine Interventional Cardiology
DX: I25.10 Atherosclerotic heart disease of native coronary artery without angina pectoris (principal); E78.5 Hyperlipidemia, unspecified; G25.81 Restless legs syndrome; I10 Essential (primary) hypertension; R06.02 Shortness of breath; R07.89 Other chest pain; R53.81 Other malaise; R53.83 Other fatigue; Z79.02 Long term (current) use of antithrombotics/antiplatelets; Z79.82 Long term (current) use of aspirin; Z85.3 Personal history of malignant neoplasm of breast; Z95.5 Presence of coronary angioplasty implant and graft; Z20.822 Contact with and (suspected) exposure to COVID-19
CPT/HCPCS: 93458; 93571; 80048 ×2; 85025 ×2; 87635; C9600; C1887; C1894; C1725; C1769; C1874; J2250; J0360 ×2; J2001; J1644; Q9967 ×2

== ENCOUNTER → 2021-06-19 | Outpatient (CLI) | payer MEDICARE, OTHER ==
--- NOTE | 2021-06-27 20:53 | HM ---
HOLTER MONITOR REPORT DATE OF THE STUDY: June 19, 2021. INDICATION: Cardiac arrhythmia. REFERRING: Dr. Uribe. The patient was monitored for 48 hours. The baseline rhythm appeared to be sinus mechanism with a minimum heart rate of 59 beats per minute, max 73 beats per minute and average of 102 beats per minute. Ventricular ectopic events were noted in less than 1% of the total beats count. Supraventricular ectopic events noted in less than 1% of the total beats count. No significant sinus pause or sinus arrest seen. The patient did not have any episodes of atrial fibrillation. CONCLUSION: 1. Sinus rhythm as a baseline mechanism. 2. Rare ventricular ectopic events. 3. ventricular ectopic events. 4. No significant sinus pause or sinus arrest. 5. No atrial fibrillation noted. MMODL / IJN: [id number] /
== END | disposition home or self-care (01) ==
LOC: RADECHMAIN 12:05
PROVIDERS: ATTEND Psychiatry & Neurology Neurology
DX: I49.3 Ventricular premature depolarization (principal)
CPT/HCPCS: 93225; 93226

== ENCOUNTER → 2021-06-22 | Outpatient (CLI) | payer MEDICARE, OTHER ==
--- NOTE | 2021-06-22 13:50 | MR ---
EXAMINATION TYPE: MR brain wo con DATE OF EXAM: 06/22/2021 COMPARISON: Prior MRI brain June 29, 2018 HISTORY: Dizziness,gait abnormality, fall with posterior head trauma TECHNIQUE: Multiplanar, multisequence imaging of the brain and brainstem is performed without IV cont rast. FINDINGS: Diffusion weighted images demonstrate no evidence of a recent infarct or other diffusion abnormality. There is ventricular and sulcal prominence redemonstrated. Degree of ventricular dilatation is out of proportion to degree of sulcal effacement and a normal pressure hydrocephalus is not excluded. Ventr icular size is not significantly changed from prior MRI. Fourth ventricle is noted stable and not arie piciously dilated. There are scattered foci and confluent areas of T2 hyperintensity greatest at deep and paraventricular region redemonstrated. T2 Star weighted images show no suspicious intraparenchym al blood product. Midline structures redemonstrate empty sella morphology. There are some fluid-filled prominence aroun d optic nerve sheaths bilaterally redemonstrated. Some globes are intact bilaterally. The craniocervi flo junction remains within normal limits. Normal vascular flow voids are present. Tortuous course to dominant distal right vertebral artery is redemonstrated. Mild mucosal thickening involving ethmoid sinuses bilaterally is redemonstrated other lennon paranasal sinuses are clear. Some patchy fluid signal inferior left mastoid air cells is redemon strated. IMPRESSION: There is persistent mild age-related cerebral atrophy and moderate to severe white matte r changes presumed on basis of product of chronic small vessel ischemic change and/or combination of transependymal flow of CSF as there is suspected underlying stable mild to moderate hydrocephalus. Ps eudotumor cerebri needs to be considered. Correlate clinically. No significant change from prior MRI. Advise neurosurgical consultation if has not been performed.
== END | disposition home or self-care (01) ==
LOC: RADMRIMAIN 12:46
PROVIDERS: ATTEND Psychiatry & Neurology Neurology
DX: G31.89 Other specified degenerative diseases of nervous system (principal); G91.9 Hydrocephalus, unspecified; W19.XXXA Unspecified fall, initial encounter
CPT/HCPCS: 70551

== ENCOUNTER → 2021-06-22 | Outpatient (CLI) | payer MEDICARE, OTHER ==
--- NOTE | 2021-06-26 10:47 | MM ---
Reason for exam: screening (asymptomatic). Last mammogram was performed 1 year ago. History: Patient is postmenopausal, has history of breast cancer at age 58, and has history of other cancer at age 56. Family history of breast cancer in sister at age 56. Benign right mammotome panel of the right breast, June 13, 2008. Lumpectomy of the left breast, August 2004. Radiation therapy of the left breast, May 2004. Malignant stereotactic core biopsy of the left breast, April 04, 2004. Took estrogen for 12 years. Took progesterone for 12 years beginning at age 42. Took tamoxifen for 4 years 6 months. Physical Findings: A clinical breast exam by your physician is recommended on an annual basis and results should be correlated with mammographic findings. MG 3D Screening Mammo W/Cad Bilateral CC and MLO view(s) were taken. Prior study comparison: June 19, 2020, bilateral MG 3d diag mammo w/cad JASON. May 24, 2019, bilateral MG 3d diag mammo w/cad JASON. The breast tissue is heterogeneously dense. This may lower the sensitivity of mammography. Finding #1: There is marked decreased size and architectural distortion in the left breast consistent with post treatment changes. Finding #2: There are typically benign dystrophic, round calcifications in both breasts. Previous mammotome biopsy in the right breast. There is no discrete abnormality. ASSESSMENT: Benign, BI-RAD 2 RECOMMENDATION: Routine screening mammogram of both breasts in 1 year.
== END | disposition home or self-care (01) ==
LOC: RADMAMWWP 09:42
PROVIDERS: ATTEND Internal Medicine Hematology & Oncology
DX: Z12.31 Encounter for screening mammogram for malignant neoplasm of breast (principal); Z78.0 Asymptomatic menopausal state; Z80.3 Family history of malignant neoplasm of breast; Z85.3 Personal history of malignant neoplasm of breast
CPT/HCPCS: 77063; 77067

== ENCOUNTER → 2022-05-02 | Outpatient (CLI) | payer MEDICARE, OTHER ==
--- NOTE | 2022-05-02 21:18 | EEG ---
ELECTROENCEPHALOGRAM REPORT CLINICAL HISTORY: This is a 76-year-old woman with reported 2 syncopal episodes. The video EEG is obtained to evaluate for seizure epileptiform activity. RELEVANT MEDICATION: Xanax. EEG TYPE: This is a routine 21-channel EEG performed with video using the 10/20 electrode placement system. DESCRIPTION: Wakefulness is obtained. During awake state, the posterior-dominant rhythm consists of nho-jf-zvpohlau voltage of 9 to 10 hertz that is well modulated, well sustained. There is no physiological stage 2 sleep architecture. There is no focal slowing. INTERICTAL AND ICTAL: There appears to be rare sharp and slow waves/phase reversal over the T3 electrode. Otherwise, there is no seizure noted during the study. ACTIVATION PROCEDURE: Photic stimulation did not evoke a posterior driving response. There is no abnormality during the photic stimulation. Hyperventilation is not performed. CLINICAL INTERPRETATION: This is an abnormal routine EEG. There appears to be rare epileptiform discharge over the left temporal region, which can increase risk for seizure. Otherwise, the background is normal, no focal slowing, and there is no seizure during this EEG. I highly recommend a prolonged EEG/ambulatory EEG as an outpatient for further evaluation. Clinical correlation is recommended. MMODL / IJN: [id number] / JAMIE
== END | disposition home or self-care (01) ==
LOC: NEUROMAIN 07:44
PROVIDERS: ATTEND Internal Medicine Geriatric Medicine
DX: R55 Syncope and collapse (principal); Z88.6 Allergy status to analgesic agent; Z88.2 Allergy status to sulfonamides; Z88.8 Allergy status to other drugs, medicaments and biological substances; Z79.82 Long term (current) use of aspirin
CPT/HCPCS: 95819

== ENCOUNTER 2022-06-25 07:51 | Outpatient (CLI) | payer MEDICARE, OTHER ==
[2022-06-25] MEDS ORDERED: diazePAM 5 MG TAB PO PRN (08:32)
[2022-06-25 09:07] VITALS: TEMP 97.7
[2022-06-25 14:09] VITALS: BP 144/62; PULSE 68; RESP 14
--- NOTE | 2022-06-25 14:52 | FL ---
EXAMINATION TYPE: FL guided lumbar puncture LP DATE OF EXAM: 06/25/2022 COMPARISON: NONE HISTORY: G91.2 TECHNIQUE: intrathecal isotope injection for nuclear medicine study, 2min 10sec fl time, Dr Louis FINDINGS: Informed consent was obtained and all the patient's questions were answered. The L4-5 level was localized fluoroscopically and the standard sterile technique was utilized. Appropriate local an esthesia was obtained with 6 cc of lidocaine. Spinal needle was introduced into the thecal sac. Openi ng pressures could not be obtained given low volume of CSF which did not reach the measurement device . Subsequently radioisotope was injected into the thecal sac. The patient was sent to nuclear medicin e for cisternogram. IMPRESSION: Successful intrathecal isotope injection
--- NOTE | 2022-06-27 14:31 | NM ---
EXAMINATION TYPE: NM cerebral spine fluid flow DATE OF EXAM: 06/27/2022 COMPARISON: MRI brain 3 days ago and older MRIs HISTORY: Normal pressure hydrocephalus. TECHNIQUE: Following intrathecal administration of 504 uCi uCi In-111 DTPA via lumbar puncture. Imag es 4,24,48 hours post injection. FINDINGS: Dynamic imaging shows progressive flow of radiotracer through the intrathecal space into the ventricu lar system and subsequent flow into the convexities. No definitive abscess or delayed flow over the s uperior convexities is identified on delayed images. IMPRESSION: No convincing scintigraphic evidence for communicating hydrocephalus.
== END 2022-06-25 14:58 | disposition home or self-care (01) ==
LOC: RADPROMAIN 07:51
PROVIDERS: ATTEND Psychiatry & Neurology Neurology
DX: G91.2 (Idiopathic) normal pressure hydrocephalus (principal)
CPT/HCPCS: 62328; 78630

== ENCOUNTER → 2022-07-01 | Outpatient (CLI) | payer MEDICARE, OTHER ==
--- NOTE | 2022-07-02 09:16 | MM ---
Reason for Exam: Screening (asymptomatic). Last mammogram was performed 1 year(s) and 1 month(s) ago. Patient History: Menarche at age 15. First Full-Term at age 32. Late child-bearing (after 32). Postmenopausal. Breast cancer, left, age 58. Other cancer, age 56. Patient used Estrogen for 12 years. Progesterone for 12 years from age 42 until age 54. Tamoxifen for 4 years, 6 months. 08/2004, Lumpectomy on the Left side. 06/13/2008, Benign Core Biopsy on the right side. 04/04/2004, Malignant Stereotactic Core Biopsy on the left side. 05/2004, Radiation Therapy on the left side. Sister had breast cancer, age 56. Prior Study Comparison: 05/24/2019 Bilateral Diagnostic Mammogram, [facility]. 06/19/2020 Bilateral Diagnostic Mammogram, [facility]. 06/22/2021 Bilateral Screening Mammogram, [facility]. Tissue Density: The breast tissue is heterogeneously dense. This may lower the sensitivity of mammography. Findings: Analyzed By CAD. There is no suspicious group of microcalcifications or new suspicious mass in either breast. Stable benign calcifications. Stable postoperative changes of the left breast. Biopsy clip within the right breast. Overall Assessment: Benign, BI-RAD 2 Management: Screening Mammogram of both breasts in 1 year. A clinical breast exam by your physician is recommended on an annual basis and results should be correlated with mammographic findings. Electronically signed and approved by: Andrea Ngo D.O.
== END | disposition home or self-care (01) ==
LOC: RADMAMWWP 13:41
PROVIDERS: ATTEND Internal Medicine Hematology & Oncology
DX: Z12.31 Encounter for screening mammogram for malignant neoplasm of breast (principal); Z78.0 Asymptomatic menopausal state; Z80.3 Family history of malignant neoplasm of breast; Z85.3 Personal history of malignant neoplasm of breast; Z98.890 Other specified postprocedural states
CPT/HCPCS: 77063; 77067

== ENCOUNTER → 2022-07-22 | Outpatient (CLI) | payer MEDICARE, OTHER ==
[2022-07-22 15:21] LABS: HCT 38.3 % (37.2-46.3); HGB 12.6 g/dL (12.0-15.0); MCH 31.3 pg (27.0-32.0); MCHC 32.9 g/dL (32.0-37.0); Mean Platelet Volume 10.7 fL (9.5-12.2); NRBC Per 100 WBC 0 /100 WBCS (0.0-0.0); Platelet Count 269 X 10*3/uL (140-440); RBC 4.03 X 10*6/uL (4.10-5.20); RDW 13.2 % (11.5-14.5); WBC 4.82 X 10*3/uL (4.50-10.00)
[2022-07-22 15:29] LABS: African American GFR (CKD) 79.5 (60.0-200.0); Anion Gap 10.6 mmol/L (10.00-18.00); Blood Urea Nitrogen 10.9 mg/dL (9.0-27.0); Non-African American GFR(CKD) 68.6 (60.0-200.0); Potassium 4.1 mmol/L (3.5-5.5)
== END | disposition home or self-care (01) ==
LOC: LABPAT 09:38
PROVIDERS: ATTEND Internal Medicine Interventional Cardiology
DX: Z01.812 Encounter for preprocedural laboratory examination (principal); I35.1 Nonrheumatic aortic (valve) insufficiency
CPT/HCPCS: 36415; 80051; 82565; 84520; 85027

== ENCOUNTER 2022-07-29 06:34 | Day surgery (SDC) | payer MEDICARE, OTHER ==
[2022-07-24 15:33] VITALS: BMI 21.7
[~2022-07-29 06:34] MED LIST changes: -ASPIRIN 325 MG TAB PO STA; -ATORVASTATIN 80 MG TAB PO STA; -HEPARIN SODIUM,PORCINE 10,000 UNIT in SODIUM CHLORIDE 0.9% 1,000 ML IRRIGATION PRN; -HEPARIN SODIUM,PORCINE 2,500 UNIT in SODIUM CHLORIDE 0.9% 250 ML IRRIGATION PRN
[2022-07-29] MEDS: SODIUM CHLORIDE 0.9% 1,000 ML in EMPTY BAG 1 BAG IV SCH (06:50)
[2022-07-29] MEDS ORDERED: HEPARIN SODIUM 1,000 UN/ML (10ML VL) ONE (07:29)
[2022-07-29] MEDS ORDERED: MIDAZOLAM 2 MG/2 ML VIAL IVP ONE (07:42)
[2022-07-29] MEDS ORDERED: LIDOCAINE 1% INJ 10MG/ML (5 ML VIAL-PF) SQ ONE (07:46)
[2022-07-29] MEDS: VERAPAMIL SYRINGE (5 MG/10 ML) INTRAARTER ONE ×2 (07:48→07:49)
[2022-07-29] MEDS: MIDAZOLAM 2 MG/2 ML VIAL IV ONE ×2 (07:50→08:10)
[2022-07-29] MEDS: HEPARIN SODIUM 1,000 UN/ML (10ML VL) IV ONE ×2 (07:52→08:29)
[2022-07-29] MEDS ORDERED: VERAPAMIL 2.5 MG/ML 2 ML AMP ONE (08:00)
[2022-07-29] MEDS ORDERED: VERAPAMIL SYRINGE (5 MG/10 ML) INTRAARTER ONE (08:10)
[2022-07-29] MEDS ORDERED: HYDROmorphone 0.5 MG/0.5 ML SYRINGE IVP ONE (08:10)
[2022-07-29] MEDS ORDERED: LIDOCAINE 1% INJ 10MG/ML (20 ML MDV) ONE (08:15)
[2022-07-29] MEDS ORDERED: LIDOCAINE 1% INJ 10MG/ML (20 ML MDV) SQ ONE (08:17)
[2022-07-29] MEDS ORDERED: MIDAZOLAM 2 MG/2 ML VIAL IV ONE (08:17)
[2022-07-29] MEDS ORDERED: IOPAMIDOL-370 100ML BTL INJ ONE ×2 (08:32→08:48)
[2022-07-29] MEDS ORDERED: NITROGLYCERIN 1000MCG/10ML SYRINGE INTRACORON ONE (08:45)
[2022-07-29] MEDS ORDERED: CLOPIDOGREL 75 MG TAB PO ONE (08:48)
[2022-07-29] MEDS ORDERED: ALBUTEROL NEBULIZED 2.5 MG/3 ML INHALATION PRN (08:49)
[2022-07-29] MEDS ORDERED: CLOPIDOGREL 75 MG TAB ONE (08:49)
[2022-07-29] MEDS ORDERED: ALPRAZolam 0.25 MG TAB PO PRN (08:49)
[2022-07-29] MEDS ORDERED: ATROPINE SULFATE 0.1 MG/ML 10ML SYRINGE IV PRN (08:50)
[2022-07-29] MEDS ORDERED: RX INFO: IV CONTRAST WAS GIVEN 1 EACH MISC MISCELLANE PRN (08:50)
[2022-07-29] MEDS ORDERED: ZOLPIDEM 5 MG TAB PO PRN (08:50)
[2022-07-29] MEDS ORDERED: MAG HYDROX/AL HYDROX/SIMETH 30 ML CUP PO PRN (08:50)
[2022-07-29] MEDS ORDERED: NITROGLYCERIN SL TABS 0.4 MG TAB SUBLINGUAL PRN (08:50)
--- NOTE | 2022-07-29 08:56 | P.PCN ---
Date of Procedure: 07/29/22 Operative Findings: CARDIAC CATHETERIZATION AND PERCUTANEOUS CORONARY INTERVENTION PERFORMING PHYSICIAN: Martin Finnegan MD, RPVI PROCEDURE PERFORMED: 1. Selective right and left coronary angiogram 2. Left heart catheterization 3. Successful stenting of mid RCA using 3.0 x 18 mm Xience XAVIER with an excellent angiographic results 4. FFR of the right coronary artery 5. Ultrasound-guided access of the right radial artery INDICATION: Chest discomfort in this 76-year-old female patient with CAD and prior stenting of the LCx who underwent a stress test came in to be abnormal showing ischemia. COMPLICATION: None APPROACH: Right radial artery and the right common femoral artery LEVEL OF SEDATION: Moderate with the sedation time off 60 minutes PROCEDURE DESCRIPTION: After obtaining an informed consent the patient was brought to the cardiac cathodic protection technician. The right radial artery was cannulated using micropuncture technique under ultrasound guidance, the micropuncture wire passed easily then I placed a 6- Indian sheath of the right common femoral artery. I gave the patient 2 mg of verapamil intra-arterial and 5000 use of heparin and intravenous with additional 2000 units given with continuous ACT monitoring. I did selective right and left coronary angiogram using JR4 and JL 3.5 catheters. Left heart catheterization was performed using the JR4 catheter. During the angioplasty from the right radial approach was unsuccessful because of the severe spasm and right arm discomfort and for that reason the right radial approach was aborted and I accessed the right common femoral artery. The right common femoral artery was cannulated using micropuncture technique, the micropuncture wire passed easily then I placed a 6-Indian sheath at the right common femoral artery. SELECTIVE CORONARY ANGIOGRAM: The right coronary artery: Large caliber vessel and a dominant vessel. The mid RCA is calcified with a lesion appears to be in the range of 60-70%. We did an FFR and that came in to be ischemic. Left main: Is angiographically normal. Bifurcates into an LCx and LAD The left circumflex: Large caliber vessel nondominant vessel. The LCx is a stented and the stent appeared to be patent The left anterior descending artery: Large caliber vessel. The proximal LAD has intermediate lesion appeared to be in the range of 50%. The mid LAD is extremely tortuous. The LAD distally has mild diffuse disease. The LAD gives rise into a large diagonal branch which has a lesion appeared to be in the range of 70%. HEMODYNAMICS: The LVEDP was about 12 mmHg was no significant gradient across aortic valve PCI OF THE RCA: Initially with right to do one FFR of the right coronary artery. After zeroing the Doppler wire and equalizing between the Doppler wire and the guiding catheter which was she are 3.5 guiding catheter and after engaging the right coronary artery and wire and get we did only iFR and that came in to be ischemic an 0.73. At that point balloon angioplasty was performed using 2.5 mm x 15 mm balloon before I deployed 3.0 x 18 mm stent where the stent was positioned under fluoroscopy guidance and deployed under 16 phyllis for 20 seconds with adjunctive use of guide liner because I could not deliver the stent without guide liner. Postdilatation was performed using 3.5 mm balloon after angiogram was performed. The balloon was inflated under 18 phyllis for 20 seconds. The final angiogram showed good angiographic results and the procedure was completed was no complication CONCLUSION: #1 Patent stent in the left circumflex coronary system #2 Severe disease involving the mid RCA which is calcified. I did perform successful stenting of the mid RCA with an excellent angiographic results #3 Severe disease involving a large diagonal branch of the left anterior descending artery #4 Normal left-sided filling pressures POSTPROCEDURE MANAGEMENT: 1. Dual antiplatelet therapy using aspirin and Plavix for 12 month 2. Aggressive cholesterol control 3. Follow-up with the patient
[2022-07-29] MEDS ORDERED: NON FORMULARY DRUG (Alendronate Sodium [Fosamax] 70 MG Tablet) PO SCH (09:00)
[2022-07-29] MEDS ORDERED: SODIUM CHLORIDE 0.9% 1,000 ML in EMPTY BAG 1 BAG IV SCH (09:00)
[2022-07-29] MEDS ORDERED: HYDROmorphone 1 MG/ML 1 ML SYRINGE ONE (12:01)
[2022-07-29] MEDS ORDERED: hydrALAZINE HCL 20 MG/ML 1 ML VIAL ONE ×2 (12:01→12:59)
[2022-07-29] MEDS: cycloSPORINE 0.05% OPHTH 0.4 ML DROPERETTE BOTH EYES SCH ×2 (14:31→20:17)
[2022-07-29] MEDS: PANTOPRAZOLE 40 MG TABLET PO SCH (17:46)
[2022-07-29] MEDS: ACETAMINOPHEN TAB 500 MG TAB PO PRN (18:16)
[2022-07-29] MEDS ORDERED: LOSARTAN 50 MG TAB PO SCH (21:00)
[2022-07-29] MEDS ORDERED: tiZANidine 4 MG TAB PO SCH (21:00)
[2022-07-29] MEDS ORDERED: ASPIRIN 81 MG PO SCH (21:00)
[2022-07-30] MEDS: ACETAMINOPHEN TAB 500 MG TAB PO PRN ×2 (00:01→08:56)
[2022-07-30] MEDS: SODIUM CHLORIDE 0.9% 1,000 ML in EMPTY BAG 1 BAG IV SCH (01:08)
[2022-07-30 05:50] VITALS: TEMP 97.8
[2022-07-30] MEDS: PANTOPRAZOLE 40 MG TABLET PO SCH (06:17)
[2022-07-30 06:55] LABS: African American GFR (CKD) >90 (>60 ml/min/1.73 sqM); Non-African American GFR(CKD) >90 (>60 ml/min/1.73 sqM)
[2022-07-30] MEDS: cycloSPORINE 0.05% OPHTH 0.4 ML DROPERETTE BOTH EYES SCH (07:29)
--- NOTE | 2022-07-30 08:54 | P.DS ---
Providers Attending physician: Martin Finnegan Consults: 07/29/22 08:50 Consult Physician Routine Consulting Provider: [facility] Consult Reason/Comments: Post Interventional patient Do you want consulting provider notified?: Already Contacted Primary care physician: [facility] Course: The patient is a pleasant 76-year-old female patient with underwent yesterday successful stenting of the right coronary artery from right radial approach and right common femoral artery approach. The patient was seen this morning. The patient was seen and evaluated this morning the she is asymptomatic. Her pressure has been elevated. The patient is going to be discharged home on dual antiplatelet therapy and I'll follow-up with the patient next week in the office. The right groin is soft and nontender with no bruises. The right radial site has a small hematoma. The pressure remains elevated and going to manage that as an outpatient by adjusting her medications. Plan - Discharge Summary Discharge Rx Participant: No New Discharge Prescriptions: Continue rOPINIRole HCL [Requip] 2 mg PO HS Omeprazole [PriLOSEC] 20 mg PO AC-BID ALPRAZolam [Xanax] 0.25 mg PO DAILY PRN PRN Reason: Anxiety tiZANidine HCL [Zanaflex] 4 mg PO HS Multivitamins, Thera [Multivitamin (formulary)] 1 tab PO DAILY Aspirin EC [Ecotrin Low Dose] 81 mg PO HS Alendronate Sodium [Fosamax] 70 mg PO MO Labetalol HCl 100 mg PO DAILY Clopidogrel [Plavix] 75 mg PO DAILY #90 tab Losartan [Cozaar] 50 mg PO HS Chlorthalidone [Hygroton] 25 mg PO QAM Atorvastatin [Lipitor] 80 mg PO DAILY Proair Inhaler 1 puff INHALATION DIRECTED PRN PRN Reason: Shortness Of Breath cycloSPORINE 0.05% OPHTH SOLN [Restasis] 1 applicator BOTH EYES Q12H Discharge Medication List Alendronate Sodium [Fosamax] 70 mg PO MO 11/30/20 [History] Aspirin EC [Ecotrin Low Dose] 81 mg PO HS 11/30/20 [History] Labetalol HCl 100 mg PO DAILY 11/30/20 [History] Multivitamins, Thera [Multivitamin (formulary)] 1 tab PO DAILY 11/30/20 [History] Omeprazole [PriLOSEC] 20 mg PO AC-BID 11/30/20 [History] rOPINIRole HCL [Requip] 2 mg PO HS 11/30/20 [History] tiZANidine HCL [Zanaflex] 4 mg PO HS 11/30/20 [History] Clopidogrel [Plavix] 75 mg PO DAILY #90 tab 02/01/21 [Rx] ALPRAZolam [Xanax] 0.25 mg PO DAILY PRN 06/25/22 [History] Atorvastatin [Lipitor] 80 mg PO DAILY 07/24/22 [History] Chlorthalidone [Hygroton] 25 mg PO QAM 07/24/22 [History] Losartan [Cozaar] 50 mg PO HS 07/24/22 [History] Proair Inhaler 1 puff INHALATION DIRECTED PRN 07/24/22 [History] cycloSPORINE 0.05% OPHTH SOLN [Restasis] 1 applicator BOTH EYES Q12H 07/24/22 [History] Follow up Appointment(s)/Referral(s): Martin Finnegan MD [STAFF PHYSICIAN] - 08/07/22 3:00 pm
[2022-07-30 08:58] VITALS: BP 159/79; PULSE 74; RESP 14
[2022-07-30] MEDS ORDERED: ATORVASTATIN 80 MG TAB PO SCH (09:00)
[2022-07-30] MEDS ORDERED: CLOPIDOGREL 75 MG TAB PO SCH (09:00)
[2022-07-30] MEDS ORDERED: MULTIVITAMINS, THERA 1 EACH TAB PO SCH (09:00)
[2022-07-30] MEDS ORDERED: CHLORTHALIDONE 25 MG TAB PO SCH (09:00)
[2022-07-30] MEDS ORDERED: LABETALOL 100 MG TAB PO SCH (09:00)
== END 2022-07-30 10:30 | disposition home or self-care (01) ==
LOC: CATHCVL 06:34 → 6NMEDSUR 10:46 → CATHCVL 07-30 10:30
PROVIDERS: ATTEND Internal Medicine Interventional Cardiology
DX: I34.0 Nonrheumatic mitral (valve) insufficiency (principal); I25.10 Atherosclerotic heart disease of native coronary artery without angina pectoris; Z95.5 Presence of coronary angioplasty implant and graft
CPT/HCPCS: 93458; 93799; C9600; 82565; 94760

== ENCOUNTER → 2023-07-04 | Outpatient (CLI) | payer MEDICARE, OTHER ==
--- NOTE | 2023-07-11 13:43 | MM ---
Reason for Exam: Screening (asymptomatic). Last screening mammogram was performed 12 month(s) ago. Patient History: Menarche at age 15. First Full-Term at age 32. Late child-bearing (after 32). Postmenopausal. Breast cancer, left, age 58. Other cancer, age 56. Patient used Estrogen for 12 years. Progesterone for 12 years from age 42 until age 54. Tamoxifen for 4 years, 6 months. 08/2004, Lumpectomy on the Left side. 06/13/2008, Benign Core Biopsy on the right side. 04/04/2004, Malignant Stereotactic Core Biopsy on the left side. 05/2004, Radiation Therapy on the left side. Sister had breast cancer, age 56. Prior Study Comparison: 06/19/2020 Bilateral Diagnostic Mammogram, [facility]. 06/22/2021 Bilateral Screening Mammogram, [facility]. 07/01/2022 Bilateral MG 3D screening mammo w/cad, [facility]. Tissue Density: The breasts are heterogeneously dense, which may obscure small masses. Findings: Analyzed By CAD. Stable postoperative distortion left breast. There is no suspicious group of microcalcifications or new suspicious mass in either breast. Overall Assessment: Benign, BI-RAD 2 Management: Screening Mammogram of both breasts in 1 year. . Patient should continue monthly self-breast exams. A clinical breast exam by your physician is recommended on an annual basis. This exam should not preclude additional follow-up of suspicious palpable abnormalities. Note on Isela scores and lifetime risk: 1. A Isela score greater than 3% is considered moderate risk. If this is the case, consider specialist referral to assess eligibility for a risk reducing agent. 2. If overall lifetime risk for the development of breast cancer is 20% or higher, the patient may qualify for future screening with alternating mammogram and breast MRI. Electronically signed and approved by: Leandro Louis M.D. Radiologis
== END | disposition home or self-care (01) ==
LOC: RADMAMWWP 09:51
PROVIDERS: ATTEND Internal Medicine Hematology & Oncology
DX: Z12.31 Encounter for screening mammogram for malignant neoplasm of breast (principal); Z78.0 Asymptomatic menopausal state; Z80.3 Family history of malignant neoplasm of breast
CPT/HCPCS: 77063; 77067

== ENCOUNTER → 2023-08-13 | Outpatient (CLI) | payer MEDICARE, OTHER ==
--- NOTE | 2023-08-13 15:59 | BD ---
EXAMINATION TYPE: Axial Bone Density DATE OF EXAM: 08/13/2023 CLINICAL HISTORY: 78 years old Female. ICD-10 CODE: M81.0 OSTEOPOROSIS Height: 5 ft 1 in Weight: 119 FRAX RISK QUESTIONS: Alcohol (3 or more units per day): no Family History (Parent hip fracture): yes Glucocorticoids (More than 3mos): no (Ex: prednisone, prednisolone, methylprednisolone, dexamethasone, and hydrocortisone). History of Fracture in Adulthood: yes Secondary Osteoporosis: 1. Type 1 Diabetes: no 2. Hyperthyroidism: no 3. Menopause before 45: yes 4. Malnutrition: no 5. Chronic liver disease: no Rheumatoid Arthritis: yes Current Tobacco Use: no RISK FACTORS HISTORY OF: Surgery to Spine/Hip(right/left)/Wrist (right/left): t spine and cpine When: MEDICATIONS: Thyroid Medications: none Osteoporosis Medications: none EXAM MEASUREMENTS: Bone mineral density about the R hip (g/cm2): 0.643 Bone mineral density about the L hip (g/cm2): 0.658 T Score values are as follows: -----R Neck: -2.8 -----L Neck: -2.7 -----R Total: -2.1 -----L Total: -2.4 Z Score values are as follows: -----R Neck: -0.6 -----L Neck: -0.5 -----R Total: 0.0 -----L Total: -0.3 Bone mineral density has: decreased -9.3 % since study of: 2013 Bone mineral density about the L Wrist (g/cm2): 0.466 T Score values are as follows: -----Dist. R+U: -4.6 -----Prox. R+U: -2.5 -----Radius total: -3.5 Z Score values are as follows: -----Dist. R+U: -2.3 -----Prox. R+U: -0.1 -----Radius total: -1.1 first time wrist has been done FRAX%s: The graph provided illustrates a 27.8 % chance for a major osteoporotic fx and a 10.3 % chanc e for the hips probability for fx in 10 years time. IMPRESSION: Osteoporosis (T Score less than -2.5). There is increased fracture risk and therapy is usually indicated based on age. Re-Screen 1-2 years. NOTE: T-SCORE=SD OF THE YOUNG ADULT MEAN.
== END | disposition home or self-care (01) ==
LOC: RADBDWWP 13:41
PROVIDERS: ATTEND Internal Medicine Geriatric Medicine
DX: M81.0 Age-related osteoporosis without current pathological fracture (principal); M85.862 Other specified disorders of bone density and structure, left lower leg; Z78.0 Asymptomatic menopausal state
CPT/HCPCS: 77080

== ENCOUNTER → 2024-02-13 | Outpatient (CLI) | payer MEDICARE, OTHER ==
[2024-02-13 13:28] LABS: Prothrombin Time 11.2 sec (10.0-12.5)
[2024-02-13 15:19] LABS: ALT 17 U/L (8-44); AST 32 U/L (13-35); Albumin 4.5 g/dL (3.8-4.9); Alkaline Phosphatase 57 U/L (41-126); BUN/Creat Ratio 25.71 Ratio (12.00-20.00); Calcium 9.3 mg/dL (8.7-10.3); Carbon Dioxide 25.1 mmol/L (21.6-31.8); Chloride 98 mmol/L (96-109); Globulin 2.5 g/dL (1.6-3.3); Glucose 86 mg/dL (70-110); Potassium 4.4 mmol/L (3.5-5.5); Sodium 135 mmol/L (135-145); Total Bilirubin 0.7 mg/dL (0.3-1.2)
[2024-02-13 15:34] LABS: HCT 37.5 % (37.2-46.3); HGB 12.5 g/dL (12.0-15.0); MCH 32.1 pg (27.0-32.0); MCHC 33.3 g/dL (32.0-37.0); MCV 96.4 FL (80.0-97.0); Mean Platelet Volume 11.9 FL (9.5-12.2); NRBC Per 100 WBC 0 X 10*3/uL (0.00-0.01); Platelet Count 216 X 10*3/uL (140-440); RBC 3.89 X 10*6/uL (4.10-5.20); RDW 13.8 % (11.5-14.5); WBC 4.57 X 10*3/uL (4.50-10.00)
== END | disposition home or self-care (01) ==
LOC: LABPAT 12:24
PROVIDERS: ATTEND Orthopaedic Surgery Sports Medicine
DX: Z01.818 Encounter for other preprocedural examination (principal); Z22.322 Carrier or suspected carrier of Methicillin resistant Staphylococcus aureus; M19.011 Primary osteoarthritis, right shoulder
CPT/HCPCS: 36415; 80053; 85027; 85610; 85730; 87070

== ENCOUNTER 2024-03-04 06:59 | Day surgery (SDC) | payer MEDICARE, OTHER ==
[2024-02-19 09:39] VITALS: BMI 20.5
[~2024-03-04 06:59] MED LIST changes: -ALPRAZolam 0.25 MG TAB PO PRN; -ALPRAZolam 0.5 MG TAB PO PRN; +HYDROmorphone 0.5 MG/0.5 ML SYRINGE IVP PRN; +LIDOCAINE 1% (10MG/ML) FOR IV START INTRADERMA PRN; -NITROGLYCERIN SL TABS 0.4 MG TAB SUBLINGUAL PRN; +ONDANSETRON 4 MG/2 ML VIAL IVP PRN; +TRANEXAMIC 1,000 MG/100ML-NACL 1,000 MG in SALINE 1 100ML.BAG IVPB PRN
[2024-03-04] MEDS: ACETAMINOPHEN TAB 500 MG TAB PO PRN (07:51)
[2024-03-04] MEDS: MELOXICAM 7.5 MG TAB PO PRN (07:51)
[2024-03-04] MEDS: GABAPENTIN 300 MG CAP PO PRN (07:51)
[2024-03-04] MEDS: LACTATED RINGERS 1,000 ML IV SCH ×2 (07:55→14:57)
[2024-03-04] MEDS: IV FLUID CONTINUATION 1,000 ML IV ONE (07:55)
[2024-03-04] MEDS: ONDANSETRON 4 MG/2 ML VIAL IVP ONE (07:59)
[2024-03-04] MEDS: DEXAMETHASONE SOD PHOSPHATE 4 MG/ML 1 ML VIAL IV ONE (07:59)
[2024-03-04] MEDS: MIDAZOLAM 2 MG/2 ML VIAL IV ONE (09:04)
[2024-03-04] MEDS ORDERED: diphenhydrAMINE 25 MG CAP PO PRN (09:33)
[2024-03-04] MEDS ORDERED: HYDROmorphone 0.5 MG/0.5 ML SYRINGE IVP PRN ×2 (09:33)
[2024-03-04] MEDS ORDERED: ONDANSETRON 4 MG/2 ML VIAL IVP PRN (09:33)
[2024-03-04] MEDS ORDERED: ROPIVACAINE 5 MG/ML 30 ML VIAL ONE (09:50)
[2024-03-04] MEDS ORDERED: SUCCINYLCHOLINE CHLORIDE 200 MG/10 ML VIAL IV ONE (09:50)
[2024-03-04] MEDS ORDERED: TRANEXAMIC 1,000 MG/100ML-NACL PREMIX BAG ONE (09:50)
[2024-03-04] MEDS ORDERED: DEXAMETHASONE SOD PHOSPHATE 4 MG/ML 1 ML VIAL ONE (09:50)
[2024-03-04] MEDS ORDERED: LIDOCAINE 1% INJ 10MG/ML (20 ML MDV) ONE (09:50)
[2024-03-04] MEDS ORDERED: PROPOFOL 10 MG/ML 20 ML VIAL IV ONE (09:50)
[2024-03-04] MEDS ORDERED: PHENYLEPHRINE-0.9% NACL SYG 1,000 MCG/10 ML SYRINGE ONE (09:50)
[2024-03-04] MEDS: ceFAZolin 1,000 MG in SODIUM CHLORIDE 0.9% 1,000 ML IRRIGATION ONE (10:08)
[2024-03-04] MEDS: LACTATED RINGERS 1,000 ML IV ONE (11:14)
[2024-03-04] MEDS: VANCOMYCIN 1,000 MG VIAL MISCELLANE ONE (11:14)
--- NOTE | 2024-03-04 13:58 | XR ---
EXAMINATION TYPE: XR shoulder limited RT DATE OF EXAM: 03/04/2024 12:52 PM COMPARISON: None CLINICAL INDICATION: Female, 78 years old with history of post op; PHH, pain TECHNIQUE: XR shoulder limited RT; examined in one view FINDINGS: Shoulder arthroplasty with hardware intact. Subcutaneous lucencies compatible with recent surgery. No evidence for fracture. Hardware appears in tact The remaining portions of the visualized chest are unremarkable. Mild degeneration changes of the acromion and distal clavicle. IMPRESSION: Post shoulder arthroplasty, no evidence for immediate postop complication. [facility], , 03/04/2024 1:56 PM
[2024-03-04] MEDS: droPERidol 5 MG/2 ML VIAL IVP ONE (16:57)
[2024-03-04] MEDS: HYDROcodone/APAP 7.5-325MG 1 EACH TAB PO PRN ×2 (18:29→23:49)
--- NOTE | 2024-03-04 18:40 | OP ---
OPERATIVE REPORT DATE OF SERVICE : 03/04/2024 HEAD COOK: Prashanth Ware PA-C. PREOPERATIVE DIAGNOSIS: Right shoulder advanced rotator cuff arthropathy. POSTOPERATIVE DIAGNOSIS: Right shoulder advanced rotator cuff arthropathy. PROCEDURE PERFORMED: Right reverse total shoulder arthroplasty. ANESTHESIA: General endotracheal. ESTIMATED BLOOD LOSS: 100 mL. DRAINS: None. COMPLICATIONS: None apparent. DISPOSITION: Postanesthesia care unit. INDICATIONS FOR PROCEDURE: Miriam is a very pleasant 78-year-old female with longstanding right shoulder pain. Workup including x-rays and MRI revealed advanced rotator cuff arthrosis arthropathy of the right shoulder. At this point, it is felt that she has failed conservative management. She would like to proceed with operative intervention. The risks of procedure were discussed with her in detail. These risks include, but are not limited to risk of infection, nerve damage, bleeding, pain, instability in the shoulder, loosening of the implants, and deep infection. There is also small risk of deep vein thrombosis, which could lead to fatal pulmonary emboli. The patient understood these risks. All of her questions with regard to the risks of procedure were answered to satisfaction. Appropriate informed consent was obtained. DESCRIPTION OF PROCEDURE: The patient was identified in preoperative holding area. Surgical site was marked by both the patient and myself. She was given 2 g of Ancef IV prophylactic purposes. She was then transported to the operative suite. She was placed supine on the operating table. General anesthetic was then administered and dosed per the Anesthesia Department without apparent complication. Examination under anesthesia was then performed to the right shoulder. She had passive elevation 150 degrees and external rotation of the side was 40 degrees. The patient was then placed into the beach chair position, well-padded in preparation for surgery. Great care was taken to ensure that her neck was in neutral alignment, well-padded, and maintained that way throughout the operative procedure. Her legs were appropriately padded as well. The patient's right upper extremity was then prepped and draped in usual sterile fashion. Standard surgical pause undertaken to ensure that appropriate preoperative antibiotics had been given and that we were operating the correct site. All staff in the room were in agreement, and we proceeded. The acromion, AC joint, clavicle, and coracoid were marked with a surgical pen. A planned incision starting at the level of the clavicle and extending distally over the deltopectoral interval approximately 1 cm lateral to the coracoid was marked with a surgical pen. The incision was then made with a 10-blade scalpel. This dissection was carried down sharply to the deltoid fascia. The deltopectoral interval was then identified at the level of clavicle. A small band retractor was then placed onto the proximal deltoid. I then released the deltoid fascia on the lateral aspect of the cephalic vein. The vein was then preserved and left in its bed medially. The cephalic vein was protected throughout the entire case. I then identified the clavipectoral fascia. This was incised proximally to the level of the coracoacromial ligament. The coracoacromial ligament was left intact. I then used my finger to spread the interval between the conjoint tendon and the subscapularis. I felt for the axillary nerve, which was readily palpable. I then cleared the subacromial and subdeltoid spaces of bursal and scar tissue. I then utilized a Brown retractor to hold the deltoid and expose the humeral head. I then proceeded to release the subscapularis in the anterior-inferior shoulder capsule. There was no attachment of the supraspinatus or infraspinatus. The long-head of the biceps tendon also had traumatically ruptured. I then released the rotator interval. This was released to the base of the coracoid and then out laterally. The subscapularis and anterior capsule were then released intertendinously. The subscapularis and capsular release extended distally in a lazy-S fashion approximately 1 cm medial to the bicipital groove. I then continued release of the capsule along the inferior neck in a vertical fashion to approximately the 6 o'clock position. Great care was taken to ensure the capsule was always visualized. It was released as to avoid injuring the axillary nerve. I then brought a Black supervisor machining with the arm externally rotated and abducted. I continued release the capsule inferomedially to approximately the 4 o'clock position. The inferior osteophytes were now removed as well. This was done with a rongeur. I then proceeded with preparation of the humerus. I removed the goat's boyle osteophytes. I then removed the subchondral plate from the superior aspect of the humeral head utilizing a large rongeur. I then used a starting reamer to gain access to the humeral canal. This was approximately 1 cm medial to the rotator cuff insertion, 1 cm posterior to the bicipital groove. I then prepared the humeral canal with hand reaming. I started with a 6 mm reamer and incrementally increased until firm resistance was encountered at 10 mm. The reamer handle was then left in place. I then utilized a humeral resection guide. This set at 30 degrees of retrotorsion. Cutting block was then set at the insertion of the rotator cuff. I then proceeded to osteotomize the head with the oscillating saw. Then, I then removed the resection guide and completed the osteotomy. I then proceeded with trial stem placement. I started with a 6 mm broach and incrementally increased up to a 10 mm broach. The 10 mm broach was then left in place. At this point, the bone hook was used to pull the humerus out laterally. I inspected the joint for any loose bodies. There were none. Again, she had chronic massive rotator cuff tear. The Bhattman retractor was then placed on the posterior aspect of the glenoid rim. The arm was placed approximately 80 degrees of abduction and slight flexion on the Black stand. I then proceeded to remove the hypertrophic labrum to definitively identify the actual glenoid. I then proceeded to place a starting pin. I utilized a mini placed a guide. The pin was then placed just inferior to the center of the glenoid in approximately 10 degrees of inferior tilt. I used a mini base plate reamer to ream the glenoid. As minimal amount of reaming was done as possible to fully seat the base plate. This was done to preserve as much subchondral bone as possible. I then placed a small augment mini trial. This seemed to fit very nicely. I had the publications sales representative open a Biomet Adrienne Mini baseplate with a small augment. The augment was placed posterior superior, and the base plate was impacted on the glenoid. I then proceeded to place a central screw. It was measured. Then, a 25 mm central screw was placed. The screw had excellent purchase in bone. I was able to rotate the scapula through the screwdriver when it was fully seated. I then proceeded to place the peripheral locking screws. The inferior screw was a 20 mm screw. The anterior, posterior, and superior screws were 15 mm screws. I then proceeded to place the real glenosphere. I chose a 36 mm glenosphere. The offset was done to preferentially offset the glenosphere inferiorly. This was a very minimal offset. The Cordova taper was then dried and the real glenosphere was impacted onto a dry Cordova taper. At this point, I proceeded with trial stem placement. I then proceeded with a standard tray and a standard poly. It was mildly difficult reduction. The shoulder was taken through a full range of motion. It was quite stable. There was minimal Shuck. The conjoint tendon was of appropriate tension. The shoulder was then very carefully re- dislocated. I had the publications sales representative open a Biomet size 10 mini stem, a standard tray and standard polyethylene. The wound was then thoroughly irrigated with sterile saline solution, antibiotic added via pulse lavage. I utilized the IrriSept antiseptic solution at this time. The Adrienne size 10 mini stem was then impacted into the humeral canal in 30 degrees of retrotorsion. This had a very secure fit. The Cordova taper was dried and then the standard tray base plate were impacted onto the stem. The shoulder was then reduced. Again, it was a mildly difficult reduction. It was very stable once reduced. It was taken through a full range of motion. There is no noted impingement. She did have minimal shuck in the conjoint tendon was of appropriate tension. I also felt for the axillary nerve at this time. This was readily palpable and uninjured during the case. At this point in time, no further work was deemed necessary. The shoulder was then thoroughly irrigated with sterile saline solution with antibiotic added. Approximately 500 mg of vancomycin powder was then placed deep in the incision. The deltopectoral interval was reapproximated with 0 Vicryl interrupted suture. The subcutaneous tissue was then again irrigated with sterile saline solution with antibiotic added. The remaining 500 mg of vancomycin powder was then placed subcutaneously. The subcutaneous tissue was then closed with 2-0 Vicryl interrupted suture. The skin was closed with a running 3-0 Quill suture. Dermabond was applied to the incision. Sterile dressing was applied, and her right upper extremity placed in a standard sling. All sponge and needle counts deemed correct prior to closure. The patient tolerated the procedure without apparent complication. She was transferred to the recovery room in stable condition. MMODL / IJN: [id number] /
[2024-03-04] MEDS ORDERED: CALCIUM CARBONATE 500 MG CHEWABLE PO PRN (19:51)
[2024-03-04] MEDS ORDERED: ALPRAZolam 0.25 MG TAB PO PRN (19:51)
[2024-03-04] MEDS: SENNOSIDES-DOCUSATE SODIUM 1 EACH TAB PO PRN (21:21)
[2024-03-04] MEDS: rOPINIRole HCL 4 MG TABLET PO SCH (21:21)
[2024-03-04] MEDS: cloNIDine HCL 0.1 MG TAB PO SCH (21:21)
[2024-03-04] MEDS: LOSARTAN 25 MG TAB PO SCH (21:21)
[2024-03-04] MEDS: tiZANidine 4 MG TAB PO SCH (21:21)
[2024-03-04] MEDS: AMITRIPTYLINE HCL 10 MG TAB PO SCH (21:21)
[2024-03-04] MEDS: SIMETHICONE 40 MG/0.6 ML DROPS 2,000 MG/30 ML BOTTLE PO PRN (21:22)
--- NOTE | 2024-03-04 22:16 | P.CONS ---
History of Present Illness - Reason for Consult Consult date: 03/04/24 Medical management - Chief Complaint Right shoulder arthroplasty - History of Present Illness Patient is a 78-year-old female with a known history of coronary artery disease stent placement, hypertension, hyperlipidemia, GERD, history of melanoma on facesurgery, left breast cancer s/p radiation and chemo at age 50s, thoracic and cervical spine surgery and chronic right shoulder pain, hiatal hernia and unsteady gait and is being evaluated by Dr. Uribe for myasthenia gravis. Patient was admitted to the hospital for elective right shoulder arthroplasty. Patient underwent reverse total right shoulder arthroplasty postoperative day 0. Currently patient is awake alert and is able to answer questions. Blood pressure elevated up to 166/83 and pulse 93 respiration 16 pulse ox 95% on 2 L on oxygen via nasal cannula. No complaints of chest pain or shortness of breath. Pain is controlled overall. Denied any nausea or vomiting or headache. Laboratory data is not available. Review of Systems Constitutional: Patient denies any fever or chills . No generalized weakness or weight loss. Abdomen: Patient denied nausea vomiting and diarrhea and abdominal pain. Cardiovascular: Patient denies any chest pain or short of breath no palpitations. Respiratory: patient denied any cough or sputum production. No shortness of breath Neurologic: Patient denied any numbness or tingling. no headache. Musculoskeletal: Patient denies any complaints of joint swelling or deformity. Right shoulder pain. Skin: Negative Psychiatric: Negative Endocrine: No heat or cold intolerance. No recent weight gain. Genitourinary: No dysuria or hematuria. All other 14 point ROS negative except the above Past Medical History Past Medical History: Coronary Artery Disease (CAD), Cancer, GERD/Reflux, Hypertension Additional Past Medical History / Comment(s): RLS, melanoma face, breast cancer left age 50s-received radiation and oral chemo-follows with Dr Nguyễn,hiatal hernia,unsteady gait-no devices-following with Dr Uribe-(pt being evaluated by Dr Uribe for myesthenia gravis) History of Any Multi-Drug Resistant Organisms: None Reported Past Surgical History: Back Surgery, Breast Surgery, Section, Heart Catheterization With Stent, Hernia Repair Additional Past Surgical History / Comment(s): thoracic and cervical spine surgery, lumpectomy left breast,hiatal hernia repair,cardiac stents x 2, delmi shoulder rotator repair Past Anesthesia/Blood Transfusion Reactions: Postoperative Nausea & Vomiting (PONV) Additional Past Anesthesia/Blood Transfusion Reaction / Comm: request no fentanyl-severe nausea and vomiting Date of Last Stent Placement:: 07-29-22 Past Psychological History: No Psychological Hx Reported Smoking Status: Never smoker Past Alcohol Use History: Occasional Past Drug Use History: None Reported - Past Family History Mother Family Medical History: Asthma, Coronary Artery Disease (CAD), Hypertension Father Family Medical History: Cancer Additional Family Medical History / Comment(s): at age 49, gallbladder cancer,myasthenia gravis Sister(s) Family Medical History: Cancer Additional Family Medical History / Comment(s): Breast cancer. Medications and Allergies Home Medications Medication Instructions Recorded Confirmed Type Aspirin EC [Ecotrin Low Dose] 81 mg PO HS 11/30/20 03/04/24 History Labetalol HCl 100 mg PO QAM 11/30/20 03/04/24 History Multivitamins, Thera [Multivitamin 1 tab PO DAILY 11/30/20 03/04/24 History (formulary)] Omeprazole [PriLOSEC] 20 mg PO AC-BID 11/30/20 03/04/24 History rOPINIRole HCL [Requip] 4 mg PO HS 11/30/20 03/04/24 History tiZANidine HCL [Zanaflex] 4 mg PO HS 11/30/20 03/04/24 History ALPRAZolam [Xanax] 0.25 mg PO TID PRN 06/25/22 03/04/24 History Atorvastatin [Lipitor] 80 mg PO DAILY 07/24/22 03/04/24 History Losartan [Cozaar] 25 mg PO HS 07/24/22 03/04/24 History Amitriptyline HCl [Elavil] 10 mg PO HS 02/19/24 03/04/24 History Calcium Carbonate [Tums] 1,000 mg PO QID PRN 02/19/24 03/04/24 History cloNIDine HCL [Catapres] 0.1 mg PO BID 02/19/24 02/19/24 History cloNIDine HCL [Catapres] 0.1 mg PO Q6H PRN 02/19/24 03/04/24 History Allergies Allergy/AdvReac Type Severity Reaction Status Date / Time celecoxib [From Celebrex] Allergy Rash/Hives Verified 03/04/24 07:30 Sulfa (Sulfonamide Allergy Anaphylaxis Verified 03/04/24 07:30 Antibiotics) fentanyl AdvReac Severe Verified 03/04/24 07:30 Nausea & Vomiting-requests NO fentanyl Physical Exam Vitals: Vital Signs Temp Pulse Pulse Resp BP Pulse Ox 03/04/24 19:47 98.0 F 92 17 122/70 94 L 03/04/24 13:26 97.6 F 96 18 166/88 96 03/04/24 13:07 95 93 16 166/83 95 03/04/24 12:52 93 93 16 165/82 95 03/04/24 12:37 93 16 162/85 95 03/04/24 12:22 90 16 168/87 95 03/04/24 12:07 94 16 163/84 95 03/04/24 11:52 93 16 181/86 100 03/04/24 11:37 97.6 F 88 14 167/77 100 03/04/24 09:10 81 14 170/79 99 03/04/24 07:49 97.7 F 83 16 211/84 98 Intake and Output 03/04/24 03/04/24 03/04/24 06:59 14:59 22:59 Intake Total 1801 800 Output Total 100 Balance 1701 800 Intake: IV 1801 Intake, IV Titration 800 Amount Lactated Ringers 1,000 ml 800 @ 100 mls/hr IV .Q10H GODFREY Rx#:[id number] Output: Estimated Blood Loss 100 Other: # Voids 2 Weight 53.4 kg PHYSICAL EXAMINATION: Patient is lying in the bed comfortably, no acute distress, awake alert and oriented.. HEENT: Normocephalic. Neck is supple. Pupils reactive. Nostrils clear. Oral cavity is moist. Neck reveals no JVD, carotid bruits, or thyromegaly. CHEST EXAMINATION: Trachea is central. Symmetrical expansion. Bibasilar diminished sounds otherwise lung baltazar clear to auscultation and percussion. CARDIAC: Normal S1, S2 with no gallops. No murmurs ABDOMEN: Soft. Bowel sounds normal. No organomegaly. No abdominal bruits. Extremities: reveal no edema. No clubbing or cyanosis Neurologically awake, alert, oriented x3 with well-coordinated movements. No focal deficits noted Skin: No rash or skin lesions. Psychiatric: Coperative. Nonsuicidal Musculoskeletal: No joint swelling or deformity. Right shoulder surgical site bandaged. Decreased range of motion. Assessment and Plan Assessment: Status post reverse right shoulder arthroplasty postoperative day 0 Hypertension uncontrolled likely due to pain Coronary artery disease with history of stent placement x 2 Hyperlipidemia GI DVT prophylaxis as per primary team Plan: Patient will be continued on pain management, bowel regimen and encourage incentive spirometry. Will be started back on losartan, labetalol and atorvastatin as well as clonidine and other home medications. Continue to monitor blood pressure closely and titrate doses as needed. PT OT was consulted. CBC and BMP was ordered. Further recommendations based on the clinical course. Thank you kindly for your consult.
[2024-03-05 02:18] VITALS: RESP 18
[2024-03-05] MEDS: HYDROmorphone 0.5 MG/0.5 ML SYRINGE IVP PRN (02:26)
[2024-03-05] MEDS: PANTOPRAZOLE 40 MG TABLET PO SCH (06:19)
--- NOTE | 2024-03-05 07:24 | P.ANPRN ---
Procedure Note - Anesthesia - Nerve Block Performed Right Interscalene Single Time Out Performed: Yes Date of Procedure: 03/04/24 Procedure Start Time: 08:56 Procedure Stop Time: 09:02 Location of Patient: PreOp Indication: Acute Post-Operative Pain, Requested by Surgeon Sedation Type: Sedate with meaningful contact maintained Preparation: Sterile Prep Position: Supine Needle Types: Pajunk Needle Gauge: 21 Ultrasound used to visualize needle placement: Yes Ultrasound used to observe medication spread: Yes Blood Aspirated: No Pain Paresthesia on Injection Noted: No Resistance on Injection: Normal Image Stored and Saved: Yes Events: Uneventful and Well Tolerated (Ropivacaine 0.5% 20 cc plus dexamethasone 4 mg)
[2024-03-05 07:55] VITALS: BP 151/71; PULSE 76; TEMP 97.5
[2024-03-05] MEDS: LABETALOL 100 MG TAB PO SCH (08:37)
[2024-03-05] MEDS: ATORVASTATIN 80 MG TAB PO SCH (08:37)
[2024-03-05 09:02] LABS: Basophils # (A) 0.03 X 10*3/uL (0.00-0.10); Basophils % (A) 0.4 %; Eosinophils # (A) 0.01 X 10*3/uL (0.04-0.35); Eosinophils % (A) 0.1 %; HCT 25.9 % (37.2-46.3); HGB 8.6 g/dL (12.0-15.0); Lymphocytes # (A) 0.76 X 10*3/uL (0.90-5.00); Lymphocytes % (A) 11.2 %; MCH 32.6 pg (27.0-32.0); MCHC 33.2 g/dL (32.0-37.0); MCV 98.1 FL (80.0-97.0); Mean Platelet Volume 11.3 FL (9.5-12.2); Monocytes # (A) 1.02 X 10*3/uL (0.20-1.00); NRBC Per 100 WBC 0 X 10*3/uL (0.00-0.01); Neutrophils # (A) 4.93 X 10*3/uL (1.80-7.70); Neutrophils % (A) 72.9 %; Platelet Count 235 X 10*3/uL (140-440); RBC 2.64 X 10*6/uL (4.10-5.20); RDW 13.7 % (11.5-14.5); WBC 6.78 X 10*3/uL (4.50-10.00)
[2024-03-05 09:10] LABS: BUN/Creat Ratio 19.43 Ratio (12.00-20.00); Blood Urea Nitrogen 13.6 mg/dL (9.0-27.0); Calcium 8.3 mg/dL (8.7-10.3); Carbon Dioxide 24.6 mmol/L (21.6-31.8); Chloride 103 mmol/L (96-109); Glucose 100 mg/dL (70-110); Potassium 4.3 mmol/L (3.5-5.5); Sodium 135 mmol/L (135-145)
--- NOTE | 2024-03-05 11:36 | P.DS ---
Providers Expected date of discharge: 03/05/24 Attending physician: Irving Oneal Consults: 03/04/24 09:33 Consult Physician Routine Consulting Provider: Luis Alberto De La Torre Consult Reason/Comments: post op medical management Do you want consulting provider notified?: Yes Primary care physician: Don Cohen - Discharge Diagnosis(es) (1) Osteoarthritis of right shoulder Patient was admitted to the OR on 03/04/24 to undergo a reverse right total shoulder arthroplasty. She had failed conservative measures as an outpatient and desired to proceed with elective surgery after given informed consent. She underwent the above procedure which he tolerated well without complication. Postoperative hospital course has remained without complication. On day of discharge she is afebrile, vital signs stable, labs within acceptable ranges, tolerating by mouth meds and diet, voiding without difficulty, positive flatus, denies abdominal pain or calf pain, pain is controlled on oral pain medication and has no new complaints. Wound is benign, neurovascular status is intact, calves are soft and nontender, abdomen soft and nontender. Review of systems is negative for numbness, tingling, fever, chills, chest pain, shortness of breath, nausea, vomiting, dizziness, headaches, slurred speech or other. Current Visit: Yes Status: Acute Priority: Medium Procedures: reverse right TSA Patient Condition at Discharge: Good Plan - Discharge Summary Discharge Rx Participant: No New Discharge Prescriptions: New Docusate [Colace] 100 mg PO BID #60 capsule Doxycycline Hyclate 100 mg PO BID #10 tab HYDROcodone/APAP 7.5-325MG [[place] 7.5-325] 1 - 2 each PO Q6HR PRN #32 tab PRN Reason: Pain Ondansetron [Zofran] 4 mg PO Q8HR PRN #21 tab PRN Reason: Nausea No Action rOPINIRole HCL [Requip] 4 mg PO HS Omeprazole [PriLOSEC] 20 mg PO AC-BID ALPRAZolam [Xanax] 0.25 mg PO TID PRN PRN Reason: Anxiety Calcium Carbonate [Tums] 1,000 mg PO QID PRN PRN Reason: reflux Amitriptyline HCl [Elavil] 10 mg PO HS cloNIDine HCL [Catapres] 0.1 mg PO BID tiZANidine HCL [Zanaflex] 4 mg PO HS Multivitamins, Thera [Multivitamin (formulary)] 1 tab PO DAILY Aspirin EC [Ecotrin Low Dose] 81 mg PO HS Labetalol HCl 100 mg PO QAM Losartan [Cozaar] 25 mg PO HS Atorvastatin [Lipitor] 80 mg PO DAILY cloNIDine HCL [Catapres] 0.1 mg PO Q6H PRN PRN Reason: syst > 160 Discharge Medication List Aspirin EC [Ecotrin Low Dose] 81 mg PO HS 11/30/20 [History] Labetalol HCl 100 mg PO QAM 11/30/20 [History] Multivitamins, Thera [Multivitamin (formulary)] 1 tab PO DAILY 11/30/20 [History] Omeprazole [PriLOSEC] 20 mg PO AC-BID 11/30/20 [History] rOPINIRole HCL [Requip] 4 mg PO HS 11/30/20 [History] tiZANidine HCL [Zanaflex] 4 mg PO HS 11/30/20 [History] ALPRAZolam [Xanax] 0.25 mg PO TID PRN 06/25/22 [History] Atorvastatin [Lipitor] 80 mg PO DAILY 07/24/22 [History] Losartan [Cozaar] 25 mg PO HS 07/24/22 [History] Amitriptyline HCl [Elavil] 10 mg PO HS 02/19/24 [History] Calcium Carbonate [Tums] 1,000 mg PO QID PRN 02/19/24 [History] cloNIDine HCL [Catapres] 0.1 mg PO BID 02/19/24 [History] cloNIDine HCL [Catapres] 0.1 mg PO Q6H PRN 02/19/24 [History] Docusate [Colace] 100 mg PO BID #60 capsule 03/05/24 [Rx] Doxycycline Hyclate 100 mg PO BID #10 tab 03/05/24 [Rx] HYDROcodone/APAP 7.5-325MG [[place] 7.5-325] 1 - 2 each PO Q6HR PRN #32 tab 03/05/24 [Rx] Ondansetron [Zofran] 4 mg PO Q8HR PRN #21 tab 03/05/24 [Rx] Follow up Appointment(s)/Referral(s): Irving Oneal MD [STAFF PHYSICIAN] - 10 Days Patient Instructions/Handouts: Shoulder Arthroplasty (DC) Activity/Diet/Wound Care/Special Instructions: Non Weight Bearing Maintain sling May shower after 3 days if no bleeding Keep wound clean and dry Take meds as directed F/U with Dr. Oneal in office Discharge Disposition: HOME SELF-CARE
[2024-03-05 13:17] LABS: HCT 26.7 % (34.0-46.0); HGB 8.7 gm/dL (11.4-16.0); Hypochromasia Slight; MCH 33.6 pg (25.0-35.0); MCHC 32.6 g/dL (31.0-37.0); Macrocytosis Slight; Mean Platelet Volume 10.2; Platelet Count 186 k/uL (150-450); RDW 13.7 % (11.5-15.5)
--- NOTE | 2024-03-05 17:11 | P.PN ---
Subjective Progress Note Date: 03/05/24 78-year-old female with a known history of coronary artery disease stent placement, hypertension, hyperlipidemia, GERD, history of melanoma on facesurgery, left breast cancer s/p radiation and chemo at age 52s, thoracic and cervical spine surgery and chronic right shoulder pain, hiatal hernia and unsteady gait and is being evaluated by Dr. Uribe for myasthenia gravis. Patient was admitted to the hospital for elective right shoulder arthroplasty. Patient underwent reverse total right shoulder arthroplasty postoperative day 0. Currently patient is awake alert and is able to answer questions. Blood pressure elevated up to 166/83 and pulse 93 respiration 16 pulse ox 95% on 2 L on oxygen via nasal cannula. No complaints of chest pain or shortness of breath. Pain is controlled overall. Denied any nausea or vomiting or headache. Laboratory data is not available. --Labs and medications reviewed; patient is stable for discharge from medical standpoint Objective - Vital Signs Vital signs: Vital Signs Temp 97.5 F L 03/05/24 07:55 Pulse 76 03/05/24 07:55 Resp 18 03/05/24 07:55 BP 151/71 03/05/24 07:55 Pulse Ox 97 03/05/24 07:55 FiO2 Intake & Output 03/04/24 03/05/24 03/05/24 18:59 06:59 18:59 Intake Total 2601 Output Total 100 Balance 2501 Weight 53.4 kg Intake: IV 1801 Intake, IV Titration 800 Amount Lactated Ringers 1,000 ml 800 @ 100 mls/hr IV .Q10H GODFREY Rx#:[id number] Output: Estimated Blood Loss 100 Other: # Voids 2 2 - Exam Patient is lying in the bed comfortably, no acute distress, awake alert and oriented.. HEENT: Normocephalic. Neck is supple. Pupils reactive. Nostrils clear. Oral cavity is moist. Neck reveals no JVD, carotid bruits, or thyromegaly. CHEST EXAMINATION: Trachea is central. Symmetrical expansion. Bibasilar diminished sounds otherwise lung baltazar clear to auscultation and percussion. CARDIAC: Normal S1, S2 with no gallops. No murmurs ABDOMEN: Soft. Bowel sounds normal. No organomegaly. No abdominal bruits. Extremities: reveal no edema. No clubbing or cyanosis Neurologically awake, alert, oriented x3 with well-coordinated movements. No focal deficits noted Skin: No rash or skin lesions. Psychiatric: Coperative. Nonsuicidal Musculoskeletal: No joint swelling or deformity. Right shoulder surgical site bandaged. Decreased range of motion. - Labs CBC & Chem 7: 03/05/24 13:05 03/05/24 04:02 Labs: Abnormal Lab Results - Last 24 Hours (Table) 03/05/24 03/05/24 Range/Units 04:02 04:02 RBC 2.64 L (4.10-5.20) X 10*6/uL Hgb 8.6 L (12.0-15.0) g/dL Hct 25.9 L (37.2-46.3) % MCV 98.1 H (80.0-97.0) FL MCH 32.6 H (27.0-32.0) pg Lymphocytes # 0.76 L (0.90-5.00) X 10*3/uL Monocytes # 1.02 H (0.20-1.00) X 10*3/uL Eosinophils # 0.01 L (0.04-0.35) X 10*3/uL Calcium 8.3 L (8.7-10.3) mg/dL Assessment and Plan Assessment: Status post reverse right shoulder arthroplasty postoperative day 0 Hypertension uncontrolled likely due to pain Coronary artery disease with history of stent placement x 2 Hyperlipidemia GI DVT prophylaxis as per primary team Plan: Patient will be continued on pain management, bowel regimen and encourage incentive spirometry. Will be started back on losartan, labetalol and atorvastatin as well as clonidine and other home medications. Continue to monitor blood pressure closely and titrate doses as needed. PT OT was consulted. CBC and BMP was ordered. Further recommendations based on the clinical course.
== END 2024-03-05 14:07 | disposition home or self-care (01) ==
LOC: OR 06:59 → 4SSUR 13:32 → OR 03-05 14:07
PROVIDERS: ATTEND Orthopaedic Surgery Sports Medicine
DX: M12.811 Other specific arthropathies, not elsewhere classified, right shoulder (principal); M75.121 Complete rotator cuff tear or rupture of right shoulder, not specified as traumatic; S46.191D Other injury of muscle, fascia and tendon of long head of biceps, right arm, subsequent encounter; Z96.611 Presence of right artificial shoulder joint
CPT/HCPCS: 64415; 80048; 85025; 85027; 73020; 23472; C1776; J2250; J3370; J1100; J0690 ×3; J2405; J1171

== ENCOUNTER → 2024-07-16 | Outpatient (CLI) | payer MEDICARE, OTHER ==
--- NOTE | 2024-07-19 08:03 | MM ---
Reason for Exam: Screening (asymptomatic). Last screening mammogram was performed 12 month(s) ago. Patient History: Menarche at age 15. First Full-Term at age 32. Late child-bearing (after 32). Postmenopausal. Breast cancer, left, age 58. Patient used Estrogen for 12 years. Progesterone for 12 years from age 42 until age 54. Tamoxifen for 4 years, 6 months. 08/2004, Lumpectomy on the Left side. 06/13/2008, Benign Core Biopsy on the right side. 04/04/2004, Malignant Stereotactic Core Biopsy on the left side. 05/2004, Radiation Therapy on the left side. Sister had breast cancer, age 56. Prior Study Comparison: 06/22/2021 Bilateral Screening Mammogram, [facility]. 07/01/2022 Bilateral MG 3D screening mammo w/cad, [facility]. 07/04/2023 Bilateral MG 3D screening mammo w/cad, [facility]. Tissue Density: The breasts are heterogeneously dense, which may obscure small masses. Findings: Analyzed By CAD. There is no suspicious group of microcalcifications or new suspicious mass in either breast. Postoperative distortion left breast is stable. Overall Assessment: Benign, BI-RAD 2 Management: Screening Mammogram of both breasts in 1 year. . Patient should continue monthly self-breast exams. A clinical breast exam by your physician is recommended on an annual basis. This exam should not preclude additional follow-up of suspicious palpable abnormalities. Note on Isela scores and lifetime risk: 1. A Isela score greater than 3% is considered moderate risk. If this is the case, consider specialist referral to assess eligibility for a risk reducing agent. 2. If overall lifetime risk for the development of breast cancer is 20% or higher, the patient may qualify for future screening with alternating mammogram and breast MRI. [facility], , 07/19/2024 8:00 AM. Electronically signed and approved by: Leandro Louis M.D. [facility]
== END | disposition home or self-care (01) ==
LOC: RADMAMWWP 16:15
PROVIDERS: ATTEND Internal Medicine Hematology & Oncology
DX: Z12.31 Encounter for screening mammogram for malignant neoplasm of breast (principal); R92.333 Mammographic heterogeneous density, bilateral breasts; Z78.0 Asymptomatic menopausal state; Z85.3 Personal history of malignant neoplasm of breast; Z80.3 Family history of malignant neoplasm of breast
CPT/HCPCS: 77063; 77067